=== PATIENT | male | born 1930 | race Caucasian/White ===

== ENCOUNTER 2021-08-28 14:52 | Emergency (ER) | payer OTHER ==
[2021-08-28 15:48] LABS: Urine Blood Trace-intact (Negative); Urine Glucose Negative (Negative); Urine Protein 2+ (Negative); Urine pH 7.5 (5.0-7.0)
[2021-08-28 16:31] LABS: Absolute Lymphocytes (CBC) 1.9 K/uL (0.7-4.9); Hematocrit 35.3 % (39.6-49.0); Lymphocytes % 27.6 % (15.3-44.8); MPV 7.8 fL (7.6-11.3); RBC Red Blood Cell Count 4.03 M/uL (4.33-5.43)
[2021-08-28 16:43] LABS: Albumin 3.5 g/dL (3.4-5.0); Bilirubin Total 0.7 mg/dL (0.2-1.0); Potassium 3.3 mmol/L (3.5-5.1); Protein, Total 7.2 g/dL (6.4-8.2)
[2021-08-28] MEDS ORDERED: CEFTRIAXONE 1000 MG/VIAL ONE (16:48)
--- NOTE | 2021-08-28 17:22 | ER ---
Nurse's Notes [facility] Name: Royer Landry Age: 89 yrs Sex: Male : 1930 Arrival Date: 08/28/2021 Time: 14:54 Bed 15 Private MD: Diagnosis: UTI/ Urinary tract infection, site not specified Presentation: 08/28 15:17 Chief complaint: Patient states: for the past 3-4 days pt back has been hurting and vg1 state has been going to urinate every hour, also states incontinence at times; denies burning with urination or blood. Coronavirus screen: Vaccine status: Patient reports receiving the 2nd dose of the covid vaccine. Client denies travel out of the [place] in the last 14 days. Ebola Screen: Patient denies exposure to infectious person. Patient denies travel to an Ebola-affected area in the 21 days before illness onset. Initial Sepsis Screen: Does the patient meet any 2 criteria? No. Patient's initial sepsis screen is negative. Does the patient have a suspected source of infection? No. Patient's initial sepsis screen is negative. Risk Assessment: Do you want to hurt yourself or someone else? Patient reports no desire to harm self or others. Onset of symptoms was August 24, 2021. 15:17 Method Of Arrival: Ambulatory vg1 15:17 Acuity: VANI 3 vg1 Triage Assessment: 15:20 General: Appears uncomfortable, Behavior is calm, cooperative. Pain: Complains of pain vg1 in back Pain currently is 5 out of 10 on a pain scale. Musculoskeletal: Circulation, motion, and sensation intact. Historical: - Allergies: 15:20 No Known Allergies; vg1 - Home Meds: 15:20 rosuvastatin oral [Active]; tamsulosin oral [Active]; Metformin Oral [Active]; vg1 - PMHx: 15:20 Diabetes mellitus; Hypertensive disorder; vg1 - Immunization history:: Client reports receiving the 2nd dose of the Covid vaccine. - Social history:: Smoking status: Patient denies any tobacco usage or history of. Screenin:37 Abuse screen: Denies threats or abuse. Denies injuries from another. Nutritional ld1 screening: No deficits noted. Tuberculosis screening: No symptoms or risk factors identified. Fall Risk None identified. Assessment: 16:37 General: Appears in no apparent distress. comfortable, Behavior is calm, cooperative, ld1 appropriate for age. Pain: Complains of pain in low back area Pain does not radiate. Pain currently is 7 out of 10 on a pain scale. Quality of pain is described as sharp, throbbing. Neuro: Level of Consciousness is awake, alert, obeys commands, Oriented to person, place, time, situation. Cardiovascular: Capillary refill < 3 seconds Patient's skin is warm and dry. Respiratory: Airway is patent Respiratory effort is even, unlabored. GI: Abdomen is round non-distended. : Reports incontinence, urgency. EENT: No signs and/or symptoms were reported regarding the EENT system. Derm: No signs and/or symptoms reported regarding the dermatologic system. Musculoskeletal: No signs and/or symptoms reported regarding the musculoskeletal system. 17:40 Reassessment: Patient appears in no apparent distress at this time. Patient and/or ld1 family updated on plan of care and expected duration. Pain level reassessed. Patient is alert, oriented x 3, equal unlabored respirations, skin warm/dry/pink. Vital Signs: 15:17 BP 109 / 54; Pulse 60; Resp 16; Temp 99.0(TE); Pulse Ox 97% on R/A; Weight 77.11 kg; vg1 Height 5 ft. 8 in. (172.72 cm); Pain 5/10; 16:37 BP 139 / 64; Pulse 52; Resp 18; Pulse Ox 98% on R/A; ld1 17:40 BP 138 / 72; Pulse 60; Resp 18; Pulse Ox 99% on R/A; ld1 15:17 Body Mass Index 25.85 (77.11 kg, 172.72 cm) 1 ED Course: 14:54 Patient arrived in ED. mr 15:04 Jarrett Ingram PA is PHCP. jmm 15:04 Jian Salguero MD is Attending Physician. [facility] 15:20 Triage completed. vg1 15:20 Arm band placed on. vg1 15:51 Urine Culture Sent. ss 16:21 Inserted saline lock: 22 gauge in right antecubital area, using aseptic technique. zm Blood collected. 16:21 Blood Culture Adult (2) Sent. zm 16:21 Procalcitonin Sent. zm 16:21 Lactate Sent. zm 16:21 CBC with Diff Sent. zm 16:21 CMP Sent. zm 16:21 Lipase Sent. zm 16:22 Urine Culture Sent. 16:36 Carlotta gArawal, RN is Primary Nurse. ld1 16:37 Patient has correct armband on for positive identification. Placed in gown. Bed in low ld1 position. Call light in reach. Side rails up X2. monitor car operator on. Pulse ox on. NIBP on. Door closed. Noise minimized. Warm blanket given. 16:37 No provider procedures requiring assistance completed. ld1 17:42 IV discontinued, intact, bleeding controlled, No redness/swelling at site. ld1 Administered Medications: 16:46 Drug: Rocephin (cefTRIAXone) 1 grams Route: IV; Rate: calculated rate; Site: right ld1 antecubital; Outcome: 17:22 Discharge ordered by . stephanie 17:41 Discharged to home ambulatory, with family. ld1 17:41 Condition: stable 17:41 Discharge instructions given to patient, family, Instructed on discharge instructions, follow up and referral plans. medication usage, Demonstrated understanding of instructions, follow-up care, medications, Prescriptions given X 1. 17:42 Patient left the ED. ld1 Signatures: Jarrett Ingram PA PA jmm Rivera, Mary mr Bette Pritchett, RN Idalia Curry RN RN 1 Carlotta Agrawal, RN RN ld1 Lacey Blevins
--- NOTE | 2021-08-28 17:22 | EDPHYS ---
Physician Documentation [facility] Name: Royer Landry Age: 89 yrs Sex: Male : 1930 Arrival Date: 08/28/2021 Time: 14:54 Bed 15 Private MD: ED Physician Jian Salguero HPI: 08/28 16:31 This 89 yrs old Male presents to ER via Ambulatory with complaints of Urinary Problem, jmm Back Pain. 16:31 Onset: The symptoms/episode began/occurred gradually, 1 day(s) ago. Associated signs jmm and symptoms: Pertinent positives: dysuria. The patient has not experienced similar symptoms in the past. This is an 89 year old male with a history of dm, htn that presents to the ED with complaints of fatigue, increased urinary frequency, body aches. Symptoms began yesterday. Denies vomiting, abdominal pain. Patient complains of some lower back pain as well. . Historical: - Allergies: 15:20 No Known Allergies; vg1 - Home Meds: 15:20 rosuvastatin oral [Active]; tamsulosin oral [Active]; Metformin Oral [Active]; vg1 - PMHx: 15:20 Diabetes mellitus; Hypertensive disorder; vg1 - Immunization history:: Client reports receiving the 2nd dose of the Covid vaccine. - Social history:: Smoking status: Patient denies any tobacco usage or history of. ROS: 16:31 Cardiovascular: Negative for chest pain, palpitations, and edema, Respiratory: Negative jmm for shortness of breath, cough, wheezing, and pleuritic chest pain, Abdomen/GI: Negative for abdominal pain, nausea, vomiting, diarrhea, and constipation. 16:31 Constitutional: Positive for body aches, chills, fatigue. 16:31 Back: Positive for pain at rest. 16:31 : Positive for urinary symptoms. 16:31 All other systems are negative. Exam: 16:31 Constitutional: This is a well developed, well nourished patient who is awake, alert, jmm and in no acute distress. Head/Face: atraumatic. Eyes: EOMI, no conjunctival erythema appreciated ENT: Moist Mucus Membranes Neck: Trachea midline, Supple Chest/axilla: Normal chest wall appearance and motion. Cardiovascular: Regular rate and rhythm. No edema appreciated Respiratory: Normal respirations, no respiratory distress appreciated Abdomen/GI: Non distended, soft Back: Normal ROM Skin: General appearance color normal MS/ Extremity: Moves all extremities, no obvious deformities appreciated, no edema noted to the lower extremities Neuro: Awake and alert Psych: Behavior is normal, Mood is normal, Patient is cooperative and pleasant Vital Signs: 15:17 BP 109 / 54; Pulse 60; Resp 16; Temp 99.0(TE); Pulse Ox 97% on R/A; Weight 77.11 kg; vg1 Height 5 ft. 8 in. (172.72 cm); Pain 5/10; 16:37 BP 139 / 64; Pulse 52; Resp 18; Pulse Ox 98% on R/A; ld1 17:40 BP 138 / 72; Pulse 60; Resp 18; Pulse Ox 99% on R/A; ld1 15:17 Body Mass Index 25.85 (77.11 kg, 172.72 cm) vg1 MDM: 15:44 Patient medically screened. [facility] 17:20 Data reviewed: vital signs, nurses notes. Counseling: I had a detailed discussion with stephanie the patient and/or guardian regarding: the historical points, exam findings, and any diagnostic results supporting the discharge/admit diagnosis, lab results, radiology results, the need for outpatient follow up, to return to the emergency department if symptoms worsen or persist or if there are any questions or concerns that arise at home. ED course: Patient is alert and non toxic in appearance in the ED. Patient does not appear septic. Given iv abx. Will follow up with pcp on . Given strict return precautions. Patient understood and agrees with the plan of care. . 08/28 15:22 Order name: Urine Culture [facility] 08/28 15:44 Order name: CBC with Diff; Complete Time: 16:33 [facility] 08/28 15:44 Order name: CMP; Complete Time: 16:45 [facility] 08/28 15:44 Order name: Lipase; Complete Time: 16:45 [facility] 08/28 15:44 Order name: Lactate; Complete Time: 16:45 [facility] 08/28 15:44 Order name: Procalcitonin; Complete Time: 16:57 [facility] 08/28 15:22 Order name: Urine Dipstick-Ancillary (obtain specimen); Complete Time: 15:51 [facility] 08/28 15:44 Order name: IV Saline Lock; Complete Time: 16:21 [facility] 08/28 15:44 Order name: Labs collected and sent; Complete Time: 16:21 [facility] 08/28 15:44 Order name: Blood Culture Adult (2) [facility] 08/28 15:49 Order name: Urine Dipstick-Ancillary; Complete Time: 16:11 EDMS Administered Medications: 16:46 Drug: Rocephin (cefTRIAXone) 1 grams Route: IV; Rate: calculated rate; Site: right ld1 antecubital; Disposition: 18:50 Co-signature as Attending Physician, Jian Salguero MD. rn Disposition Summary: 08/28/21 17:22 Discharge Ordered Location: Home [facility] Condition: Stable [facility] Diagnosis - UTI/ Urinary tract infection, site not specified [facility] Followup: [facility] - With: Private Physician - When: 2 - 3 days - Reason: Recheck today's complaints, Continuance of care, Re-evaluation by your physician Discharge Instructions: - Discharge Summary Sheet [facility] - Urinary Tract Infection, Adult [facility] Forms: - Medication Reconciliation Form [facility] - Thank You Letter [facility] - Antibiotic Education [facility] - Prescription Opioid Use [facility] Prescriptions: - cefpodoxime 200 mg Oral Tablet - take 1 tablet by ORAL route every 12 hours for 10 days with food; 20 tablet; [facility] Refills: 0, Product Selection Permitted Signatures: Dispatcher [employer] EDMS Jarrett Ingram PA PA jmm Nieto, Roman, MD MD rn Garcia, Victoria RN RN vg1 Carlotta Agrawal RN RN ld1
[2021-08-28 18:10] VITALS: TEMP 99
[2021-08-28 18:19] VITALS: BP 138/72; O2SAT 99
== END 2021-08-28 17:42 | disposition home or self-care (01) ==
LOC: ER 14:52
DX: N39.0 Urinary tract infection, site not specified (principal); E11.9 Type 2 diabetes mellitus without complications; I10 Essential (primary) hypertension
CPT/HCPCS: 36415; 80053; 81003; 83605; 83690; 84145; 85025; 87040; 87086; 87088; 96374; 99284

== ENCOUNTER 2021-08-29 20:39 | Inpatient (IN) | payer OTHER ==
--- NOTE | 2021-08-29 21:58 | RAD REPORT ---
EXAM DESCRIPTION: RAD - Chest Single View - 08/29/2021 9:17 pm CLINICAL HISTORY: COUGH COMPARISON: None available TECHNIQUE: AP portable chest image was obtained 08/29/2021 9:17 pm . FINDINGS: Lungs are clear. Lung base markings are accentuated by shallow inspiration. No definitive infiltrates seen. Heart and vasculature are normal. No measurable pleural effusion and no pneumothora x. No acute bony abnormality seen. No acute aortic findings suspected. IMPRESSION: No acute cardiopulmonary process.
--- NOTE | 2021-08-29 22:05 | RAD REPORT ---
EXAM DESCRIPTION: CT - Head C Spine Cap Wo Con - 08/29/2021 9:29 pm CLINICAL HISTORY: fall, head, neck, chest and abdomen pain COMPARISON: No comparisonsNo comparisons TECHNIQUE: Axial [address] head images were obtained. Axial [address] cervical spine images were obtain ed with sagittal and coronal reconstruction images reviewed. Axial 5 mm images of the chest, abdomen and pelvis were obtained. All CT scans are performed using dose optimization technique as appropriate and may include automated exposure control or mA/KV adjustment according to patient size. FINDINGS: No intracranial hemorrhage, mass or edema. No midline shift or abnormal fluid collection. Prominent atrophy and chronic ischemic changes are present. Ventricles appear slightly out of proport ion to the amount of volume loss. Correlation is needed with any findings of normal pressure hydrocep halus. Mastoid air cells are clear. Facial bones, orbits and sinuses are separately detailed. No skul l fracture. Arterial tree calcifications are present. 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 Cervical bodies are normal in height and alignment. No fracture or acute bone finding.Disc space narr owing is present from C3-C7. Endplate spurring changes are present with multilevel bony foraminal enc roachment.No prevertebral soft tissue thickening or paraspinal mass.Central canal detail is inherentl y limited on CT imaging. No pneumothorax or pulmonary contusion. Trace amount pleural fluid present in each post chest. No car diomegaly or pericardial effusion. No mediastinal hematoma and the aorta and pulmonary arteries are unremarkable. No chest will mass or abnormal axillary finding. No displaced rib fracture or other si gnificant bony finding. CT abdomen and pelvis show no injury to solid abdominal viscera. Gallbladder and biliary tree are unr emarkable. No bowel injury or significant finding. No free air, free fluid or abnormal stranding. No hernia, mass or bulky lymphadenopathy. No urinary bladder abnormality. No significant bony finding. Paget's or fibrous dysplasia changes to the left hemipelvis noted as an incidental finding. IMPRESSION: No hemorrhage, edema or acute intracranial finding. Atrophy and chronic ischemic changes are present with ventricles out of proportion to volume loss. Correlation can be made with any findi ngs of normal pressure hydrocephalus. 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 Cervical spine degenerative change with no acute finding. No pneumothorax, pulmonary contusion or acute CT chest finding. No acute CT abdomen or pelvis finding.
--- NOTE | 2021-08-29 22:07 | RAD REPORT ---
EXAM DESCRIPTION: CT - Facial Bones W/ Mpr - 08/29/2021 9:29 pm CLINICAL HISTORY: Fall with facial trauma COMPARISON: None. TECHNIQUE: Axial 2 millimeter thick images of the facial bones were obtained with sagittal and coron al reconstruction imaging. All CT scans are performed using dose optimization technique as appropriate and may include automated exposure control or mA/KV adjustment according to patient size. FINDINGS: Small scalp hematoma overlies the right frontal bone and there is periorbital contusion or edema. No globe or orbital content acute injury. No foreign body in the soft tissues. No fracture of the mandible identified. Condyles are normally positioned. Mastoid air cells are clear . There is no skullbase fracture. No facial bone fractures identified. Very minimal right deviation t he nasal septum present without fracture. IMPRESSION: Right-sided frontal bone and periorbital soft tissue injury with no foreign body. No facial bone fractures identified.
[2021-08-29 23:12] LABS: Absolute Lymphocytes (CBC) 1.3 K/uL (0.7-4.9); Hematocrit 38.3 % (39.6-49.0); Lymphocytes % 13.2 % (15.3-44.8); MPV 7.9 fL (7.6-11.3); RBC Red Blood Cell Count 4.42 M/uL (4.33-5.43)
[2021-08-29] MEDS ORDERED: NA CHLORIDE 0.9% 2,000 ML ONE (23:15)
[2021-08-29] MEDS ORDERED: FAMOTIDINE 20 MG/2 ML VIAL IV ONE (23:15)
[2021-08-29 23:17] LABS: Protime INR 1.04
--- NOTE | 2021-08-29 23:24 | ER ---
Nurse's Notes [facility] Name: Royer Landry Age: 89 yrs Sex: Male : 1930 Arrival Date: 08/29/2021 Time: 20:48 Bed 5 Private MD: Diagnosis: Weakness;Chronic atrial fibrillation;Fall on same level, unspecified;Syncope Near;UTI/ Urinary tract infection, site not specified;Rhabdomyolysis;Unspecified kidney failure-acute on chronic;Hypomagnesemia;Coronavirus infection, unspecified Presentation: 08/28 21:00 Chief complaint: EMS states: "Pt son stated he sat his dad down for breakfast about vc1 7:30 and came back about 12 hours later and found him face down on the floor meal not eaten. Pt states he remembers falling and there was no LOC.". Coronavirus screen:. Risk Assessment: Do you want to hurt yourself or someone else? Patient reports no desire to harm self or others. 08/29 21:00 Method Of Arrival: EMS: [facility] vc1 21:00 Acuity: VANI 2 vc1 21:00 Ebola Screen: No symptoms or risks identified at this time. Initial Sepsis Screen: Does vc1 the patient meet any 2 criteria? RR > 20 per min. No. Patient's initial sepsis screen is negative. Does the patient have a suspected source of infection? No. Patient's initial sepsis screen is negative. Onset of symptoms was August 29, 2021. Historical: - Allergies: 22:23 No Known Allergies; vc1 - Home Meds: 22:23 Metformin Oral [Active]; rosuvastatin Oral [Active]; tamsulosin Oral [Active]; vc1 - PMHx: 22:23 diabetes mellitus; Hypertensive disorder; vc1 - Immunization history:: Adult Immunizations up to date. - Social history:: Smoking status: Patient denies any tobacco usage or history of. - Family history:: not pertinent. Screenin/04 02:27 Abuse screen: Denies threats or abuse. Nutritional screening: No deficits noted. ll3 Tuberculosis screening: No symptoms or risk factors identified. Fall Risk Fall in past 12 months (25 points). No secondary diagnosis (0 pts). IV access (20 points). Ambulatory Aid- None/Bed Rest/Nurse Assist (0 pts). Gait- Normal/Bed Rest/Wheelchair (0 pts) Mental Status- Oriented to own ability (0 pts). Total Abernathy Fall Scale indicates Low Risk Score (25-44 pts). Fall prevention measures have been instituted. Side Rails Up X 2 Placed close to Nursing Station Family Present and informed to notify staff if they need to leave bedside As available Patient and Family Educated on Fall Prevention Program and strategies. Assessment: 08/29 23:32 General: Appears comfortable, Behavior is calm, cooperative. Pain: Complains of pain in ll3 right eye. Neuro: Level of Consciousness is awake, alert, obeys commands, Oriented to person, place, time, situation. Respiratory: Respiratory effort is even, unlabored, Respiratory pattern is regular, symmetrical. Derm: Bruising that is dark purple, on right eye Reports States pt fell this morning, swelling and bruising to right eye. Musculoskeletal: Circulation, motion, and sensation intact. 08/30 02:31 Reassessment: No changes from previously documented assessment. Patient and/or family ll3 updated on plan of care and expected duration. Pain level reassessed. Patient is alert, oriented x 3, equal unlabored respirations, skin warm/dry/pink. 03:30 Reassessment: 2nd attempt to call report, will call back in 10 minutes. vc1 Vital Signs: 08/29 22:40 BP 143 / 66; Pulse 78; Resp 19; Pulse Ox 99% on R/A; ll3 08/30 00:30 BP 142 / 67; Pulse 74; Resp 22; Pulse Ox 98% on R/A; ll3 02:00 BP 121 / 63; Pulse 77; Resp 21; Pulse Ox 99% on R/A; ll3 ED Course: 08/29 20:48 Patient arrived in ED. mw2 20:53 Estrada Wiggins MD is Attending Physician. bran 21:19 XRAY Chest (1 view) In Process Unspecified. EDMS 21:31 CT Traumagram (Head C Spine CAP wo con) In Process Unspecified. EDMS 21:31 Facial Bones W/ Mpr In Process Unspecified. EDMS 22:23 Triage completed. vc1 23:19 Yue De Los Santos MD is Hospitalizing Provider. bran 08/30 02:27 Patient has correct armband on for positive identification. Bed in low position. Call ll3 light in reach. Side rails up X 1. 02:27 Inserted saline lock: 22 gauge in right antecubital area, using aseptic technique. ll3 Blood collected. 03:30 No provider procedures requiring assistance completed. Patient admitted, IV remains in vc1 place. Administered Medications: 08/29 23:20 Drug: Pepcid (famotidine) 20 mg Route: IVP; Site: right antecubital; ll3 08/30 00:35 Follow up: Response: No adverse reaction 3 08/29 23:21 Drug: NS 0.9% 1000 ml Route: IV; Rate: 1 bolus; Site: right antecubital; ll3 08/30 02:32 Follow up: Response: No adverse reaction; IV Status: Completed infusion; IV Intake: ll3 1000ml 08/29 23:32 Drug: Rocephin (cefTRIAXone) 1 grams Route: IV; Rate: per protocol; Site: right ll3 antecubital; 08/30 00:34 Follow up: Response: No adverse reaction; IV Status: Completed infusion; IV Intake: [id number] 00:34 Drug: Magnesium Sulfate 1 grams Route: IVPB; Infused Over: 1 hrs; Site: right ll3 antecubital; 02:31 Follow up: Response: No adverse reaction; IV Status: Completed infusion; IV Intake: ll3 100ml 00:34 Drug: Viscous Lidocaine Liquid (4 %) 5 ml Route: Mucous Membrane; ll3 02:31 Follow up: Response: No adverse reaction ll3 01:42 Drug: NS 0.9% 1000 ml Route: IV; Rate: 125 ml/hr; Site: right antecubital; ll3 Intake: 00:34 IV: 10ml; Total: 10ml. ll3 02:31 IV: 100ml; Total: 110ml. ll3 02:32 IV: 1000ml; Total: 1110ml. ll3 Outcome: 08/29 23:24 Decision to Hospitalize by Provider. [facility] 08/30 03:57 Admitted to Med/surg accompanied by tech, via stretcher, room 223, Report called to 1 Anushka Lira RN Condition: good Instructed on the need for admit. 04:20 Patient left the ED. [facility] Signatures: Dispatcher [employer] EDEstrada Figueroa MD MD cha [place]brook, MyKena 2 Loubet, Lynsea, RN RN ll3 Calcote, Lina, RN RN vc1
--- NOTE | 2021-08-29 23:24 | EDPHYS ---
Physician Documentation [facility] Name: Royer Landry Age: 89 yrs Sex: Male : 1930 Arrival Date: 08/29/2021 Time: 20:48 Bed 5 Private MD: ED Physician Estrada Wiggins HPI: 08/29 21:08 This 89 yrs old Male presents to ER via Unassigned with complaints of fall on bran floor x 24 hrs. 21:08 weak, at baseline. Onset: The symptoms/episode began/occurred yesterday. Severity of bran symptoms: At their worst the symptoms were mild in the emergency department the symptoms are unchanged. The patient has not experienced similar symptoms in the past. Historical: - Allergies: 22:23 No Known Allergies; vc1 - Home Meds: 22:23 Metformin Oral [Active]; rosuvastatin Oral [Active]; tamsulosin Oral [Active]; vc1 - PMHx: 22:23 diabetes mellitus; Hypertensive disorder; vc1 - Immunization history:: Adult Immunizations up to date. - Social history:: Smoking status: Patient denies any tobacco usage or history of. - Family history:: not pertinent. ROS: 21:10 Constitutional: Negative for fever, chills, and weight loss, Eyes: Negative for injury, bran pain, redness, and discharge, ENT: Negative for injury, pain, and discharge, Neck: Negative for injury, pain, and swelling, Cardiovascular: Negative for chest pain, palpitations, and edema, Respiratory: Negative for shortness of breath, cough, wheezing, and pleuritic chest pain, Abdomen/GI: Negative for abdominal pain, nausea, vomiting, diarrhea, and constipation, Back: Negative for injury and pain, : Negative for injury, bleeding, discharge, and swelling, Skin: Negative for injury, rash, and discoloration, Psych: Negative for depression, anxiety, suicide ideation, homicidal ideation, and hallucinations, Allergy/Immunology: Negative for hives, rash, and allergies, Endocrine: Negative for neck swelling, polydipsia, polyuria, polyphagia, and marked weight changes. 21:10 MS/extremity: Positive for abrasion, contusion. 21:10 Neuro: Positive for altered mental status, near syncope, weakness. Exam: 21:10 Constitutional: This is a well developed, well nourished patient who is awake, alert, bran and in no acute distress. Head/Face: Normocephalic, atraumatic. Eyes: Pupils equal round and reactive to light, extra-ocular motions intact. Lids and lashes normal. Conjunctiva and sclera are non-icteric and not injected. Cornea within normal limits. Periorbital areas with no swelling, redness, or edema. ENT: Nares patent. No nasal discharge, no septal abnormalities noted. Tympanic membranes are normal and external auditory canals are clear. Oropharynx with no redness, swelling, or masses, exudates, or evidence of obstruction, uvula midline. Mucous membranes moist. Neck: Trachea midline, no thyromegaly or masses palpated, and no cervical lymphadenopathy. Supple, full range of motion without nuchal rigidity, or vertebral point tenderness. No Meningismus. Chest/axilla: Normal chest wall appearance and motion. Nontender with no deformity. No lesions are appreciated. Cardiovascular: Regular rate and rhythm with a normal S1 and S2. No gallops, murmurs, or rubs. Normal PMI, no JVD. No pulse deficits. Respiratory: Lungs have equal breath sounds bilaterally, clear to auscultation and percussion. No rales, rhonchi or wheezes noted. No increased work of breathing, no retractions or nasal flaring. Abdomen/GI: Soft, non-tender, with normal bowel sounds. No distension or tympany. No guarding or rebound. No evidence of tenderness throughout. Back: No spinal tenderness. No costovertebral tenderness. Full range of motion. Male : Normal genitalia with no discharge or lesions. Psych: Awake, alert, with orientation to person, place and time. Behavior, mood, and affect are within normal limits. 21:10 Musculoskeletal/extremity: ROM: no acute changes, intact in all extremities, Circulation is intact in all extremities. Sensation intact. Compartment Syndrome exam of affected extremity: is normal. DVT Exam: no swelling, negative Homans' sign noted on exam, no appreciated bluish discoloration, no erythema, no increased warmth, pain, tenderness. 21:10 Skin: injury, contusion(s), that are deep, of the right eye. 22:45 ECG was reviewed by the Attending Physician. [facility] Vital Signs: 22:40 BP 143 / 66; Pulse 78; Resp 19; Pulse Ox 99% on R/A; ll3 08/30 00:30 BP 142 / 67; Pulse 74; Resp 22; Pulse Ox 98% on R/A; ll3 02:00 BP 121 / 63; Pulse 77; Resp 21; Pulse Ox 99% on R/A; ll3 MDM: 08/29 20:53 Patient medically screened. bran 21:10 Differential diagnosis: closed head injury, C spine fracture, T spine fracture, L spine bran fracture. Differential Diagnosis altered mental status. Differential Diagnosis: cardiac arrhythmia, cerebrovascular accident, transient ischemic attack, vasovagal episode. Data reviewed: vital signs, nurses notes, lab test result(s), EKG, radiologic studies, CT scan, plain films. Data interpreted: phototypesetting equipment monitor: rate is 85 beats/min. Test interpretation: by ED physician or midlevel provider: ECG, plain radiologic studies. Counseling: I had a detailed discussion with the patient and/or guardian regarding: the historical points, exam findings, and any diagnostic results supporting the discharge/admit diagnosis, lab results, radiology results, the need for further work-up and treatment in the hospital. 08/29 21:07 Order name: Basic Metabolic Panel; Complete Time: 23:50 [facility] 08/29 21:07 Order name: CBC with Diff; Complete Time: 23:17 [facility] 08/29 21:07 Order name: LFT's; Complete Time: 23:50 [facility] 08/29 21:07 Order name: Magnesium; Complete Time: 23:50 [facility] 08/29 21:07 Order name: NT PRO-BNP; Complete Time: 23:50 [facility] 08/29 21:07 Order name: PT-INR; Complete Time: 23:50 [facility] 08/29 21:07 Order name: Troponin HS; Complete Time: 23:50 [facility] 08/29 21:07 Order name: Lipase; Complete Time: 23:50 [facility] 08/29 21:07 Order name: Urine Culture [facility] 08/29 21:07 Order name: Ckmb; Complete Time: 23:50 [facility] 08/29 21:07 Order name: CK; Complete Time: 23:50 [facility] 08/30 00:41 Order name: COVID-19/FLU A+B (Document "Date of Onset" if Symptomatic) ll3 08/30 00:44 Order name: Urine Dipstick-Ancillary; Complete Time: 00:47 EDMS 08/29 21:07 Order name: XRAY Chest (1 view); Complete Time: 22:13 [facility] 08/29 21:07 Order name: EKG; Complete Time: 21:08 [facility] 08/29 21: Order name: Cardiac monitoring; Complete Time: 23:44 [facility] 08/29 21:07 Order name: EKG - Nurse/Tech; Complete Time: 23:44 [facility] 08/29 21:07 Order name: IV Saline Lock; Complete Time: 23:44 [facility] 08/29 21:07 Order name: Labs collected and sent; Complete Time: 23:44 [facility] 08/29 21:07 Order name: O2 Per Protocol; Complete Time: 23:44 [facility] 08/29 21:07 Order name: O2 Sat Monitoring; Complete Time: 23:44 [facility] 08/29 21: Order name: CT Traumagram (Head C Spine CAP wo con); Complete Time: 22:13 [facility] 08/29 21:24 Order name: Facial Bones W/ Mpr; Complete Time: 22:13 EDMO 08/29 21:07 Order name: Urine Dipstick-Ancillary (obtain specimen); Complete Time: 00:41 [facility] EC:45 Rate is 78 beats/min. Rhythm is irregularly irregular. QRS [place] is Normal. RI interval bran is normal. QRS interval is normal. QT interval is prolonged at 418 msec. No Q waves. T waves are Normal. No ST changes noted. Clinical impression: Atrial Fibrillation and No evidence of ischemia. Interpreted by me. Reviewed by me. Administered Medications: 23:20 Drug: Pepcid (famotidine) 20 mg Route: IVP; Site: right antecubital; [facility] 08/30 00:35 Follow up: Response: No adverse reaction [facility] 08/29 23:21 Drug: NS 0.9% 1000 ml Route: IV; Rate: 1 bolus; Site: right antecubital; [facility] 08/30 02:32 Follow up: Response: No adverse reaction; IV Status: Completed infusion; IV Intake: ll3 1000ml 08/29 23:32 Drug: Rocephin (cefTRIAXone) 1 grams Route: IV; Rate: per protocol; Site: right [facility] antecubital; 08/30 00:34 Follow up: Response: No adverse reaction; IV Status: Completed infusion; IV Intake: [id number] 00:34 Drug: Magnesium Sulfate 1 grams Route: IVPB; Infused Over: 1 hrs; Site: right ll3 antecubital; 02:31 Follow up: Response: No adverse reaction; IV Status: Completed infusion; IV Intake: ll3 100ml 00:34 Drug: Viscous Lidocaine Liquid (4 %) 5 ml Route: Mucous Membrane; ll3 02:31 Follow up: Response: No adverse reaction ll3 01:42 Drug: NS 0.9% 1000 ml Route: IV; Rate: 125 ml/hr; Site: right antecubital; ll3 Disposition Summary: 08/29/21 23:24 Hospitalization Ordered Hospitalization Status: Inpatient Admission bran Provider: Yue De Los Santos cha Location: Telemetry/MedSurg (Inpatient) bran Condition: Fair bran Problem: new bran Symptoms: have improved bran Bed/Room Type: Standard bran Room Assignment: 223(08/30/21 03:00) cg Diagnosis - Weakness bran - Chronic atrial fibrillation bran - Fall on same level, unspecified bran - Syncope Near bran - UTI/ Urinary tract infection, site not specified bran - Rhabdomyolysis bran - Unspecified kidney failure - acute on chronic bran - Hypomagnesemia bran - Coronavirus infection, unspecified bran Forms: - Medication Reconciliation Form bran - SBAR form bran Signatures: Dispatcher [employer] Estrada Hurst MD MD cha Garcia, Cindy, RN RN Zackary Jackson RN RN ll3 Lina Jeffries RN RN vc1 Dana Mas PA PA sb3 Corrections: (The following items were deleted from the chart) 01:09 00:41 COVID 19 CPL+MR.LAB.BRZ ordered. [facility] EDMO 03:00 08/29 23:24 bran cg
[2021-08-29] MEDS ORDERED: CEFTRIAXONE 1000 MG/VIAL ONE (23:28)
[2021-08-29 23:42] LABS: Albumin 2.8 g/dL (3.4-5.0); Bilirubin Direct 0.2 mg/dL (0-0.2); Bilirubin Total 0.6 mg/dL (0.2-1.0); Magnesium 1.6 mg/dL (1.8-2.4); Potassium 3.5 mmol/L (3.5-5.1); Protein, Total 6.5 g/dL (6.4-8.2)
[2021-08-29 23:47] LABS: CKMB Creatine Kinase MB 55.1 ng/mL (1.0-3.6)
[2021-08-29 23:48] LABS: Troponin High Sensitivity 68.5 pg/mL (<58.9)
[2021-08-30] MEDS ORDERED: LIDOCAINE VISCOUS 2% SOLN 15 ML UDC ONE (00:31)
[2021-08-30] MEDS ORDERED: MAGNESIUM SULFATE 1 gm IVPB 1 GM/100 ML BAG IV ONE (00:31)
[2021-08-30 00:43] LABS: Urine Blood 2+ (Negative); Urine Glucose Negative (Negative); Urine Protein 2+ (Negative)
--- NOTE | 2021-08-30 01:11 | P.HP ---
Certification for Inpatient Patient admitted to: Inpatient With expected LOS: <2 Midnights Patient will require the following post-hospital care: None Practitioner: I am a practitioner with admitting privileges, knowledge of patient current condition, hospital course, and medical plan of care. Services: Services provided to patient in accordance with Admission requirements found in Title 42 Section 412.3 of the Code of Federal Regulations Patient History Date of Service: 08/30/21 Primary Care Provider: Izaiah Reason for admission: Rhabdomyolysis, GARO History of Present Illness: Patient is an 89-year-old male with past medical history of type 2 diabetes [id number], hypertension, and BPH who presented to the ED via EMS. Per patient's son, he sat his dad down for breakfast around 730 and when he came home over 12 hours later he found him face down on the floor with his food untouched. Patient does not recall what happened. CT traumagram negative. Patient has right periorbital swelling and bruising but CT facial bones negative for fracture. Labs significant for creatinine 1.41, GFR 47, glucose 127, magnesium 1.6, creatinine kinase 3174, CK-MB 55, troponin at bedtime 68, BNP 1933, albumin 2.8, urine positive for UTI. Patient was seen in the ED yesterday and treated for a UTI with 1 g Rocephin and discharged with a prescription for cefpodoxime. Today in the ED, he was given 2 L normal saline, 1 g Rocephin, magnesium. Son is at bedside upon my assessment and states that patient has already improved significantly. Reports he is much more talkative and less confused than he was initially. Patient is not sure what happened today but he is oriented x3 and is answering my questions appropriately. He denies any pain. Will admit patient for further evaluation and treatment. Home medications list reviewed: Yes - Past Medical/Surgical History Diabetic: Yes -: Type 2 Diabetes, Non-Insulin Dependent -: HTN -: BPH Past Surgical History: Patient denies surgical history Psychosocial/ Personal History: Patient lives at home independently. - Family History Brother -: Blood disorders Mother -: Cancer - Social History Smoking Status: Former smoker Alcohol use: No CD- Drugs: No Caffeine use: Yes Place of Residence: Home Review of Systems Unremarkable Physical Examination - Physical Exam General: Alert, In no apparent distress, Oriented x3 HEENT: PERRLA, Other (R periorbital bruising and swelling), EOMI Neck: Supple, 2+ carotid pulse no bruit, No LAD, Without JVD or thyroid abnormality Respiratory: Clear to auscultation bilaterally, Normal air movement Cardiovascular: No edema, Regular rate/rhythm, Normal S1 S2 Gastrointestinal: Normal bowel sounds, No tenderness Musculoskeletal: No erythema, No tenderness, No warmth Integumentary: No rashes Neurological: Normal speech, Normal strength at 5/5 x4 extr, Normal tone, Normal affect Urinary: Fink catheter - Studies Laboratory Data (last 24 hrs) 08/29/21 23:01: PT 11.5, INR 1.04 08/29/21 23:01: WBC 10.2 D, Hgb 13.3 L, Hct 38.3 L, Plt Count 160 08/29/21 23:01: Sodium 139, Potassium 3.5, BUN 30 H, Creatinine 1.41 H, Glucose 127 H, Magnesium 1.6 L, Total Bilirubin 0.6, AST 113 H, ALT 50, Alkaline Phosphatase 71, Lipase 130 Assessment and Plan - Problems (Diagnosis) (1) Rhabdomyolysis Current Visit: Yes Status: Acute Qualifiers: Rhabdomyolysis type: non-traumatic Qualified Code(s): M62.82 - Rhabdomyolysis (2) Fall Current Visit: Yes Status: Acute Qualifiers: Encounter type: initial encounter Qualified Code(s): W19.XXXA - Unspecified fall, initial encounter (3) GARO (acute kidney injury) Current Visit: Yes Status: Acute (4) Type 2 diabetes mellitus Current Visit: No Status: Chronic Qualifiers: Diabetes mellitus snf insulin use: without local intermodal truck driver use Diabetes mellitus complication status: with kidney complications Diabetes mellitus complication detail: with chronic kidney disease 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) (5) New onset a-fib Current Visit: Yes Status: Acute (6) HTN (hypertension) Current Visit: No Status: Chronic Qualifiers: Hypertension type: primary hypertension Qualified Code(s): I10 - Essential (primary) hypertension (7) BPH (benign prostatic hyperplasia) Current Visit: Yes Status: Chronic Qualifiers: Lower urinary tract symptom presence: symptoms present Lower urinary tract symptom detail: unspecified Qualified Code(s): N40.1 - Benign prostatic hyperplasia with lower urinary tract symptoms (8) UTI (urinary tract infection) Current Visit: Yes Status: Acute Qualifiers: Urinary tract infection type: acute cystitis Hematuria presence: with hematuria Qualified Code(s): N30.01 - Acute cystitis with hematuria (9) Hypomagnesemia Current Visit: Yes Status: Acute (10) HLD (hyperlipidemia) Current Visit: No Status: Chronic Qualifiers: Hyperlipidemia type: unspecified Qualified Code(s): E78.5 - Hyperlipidemia, unspecified - Plan -Rhabdomyolysis likely secondary to patient's prolonged immobilization after fall today -Creatinine kinase, CK-MB, and troponin HS all elevated. Will trend -Patient given 2 L fluid in the ED. continue NS at 125 cc/hour. Fink catheter inserted in the ED. -GARO with creatinine of 1.41. Will trend. Hold nephrotoxic drugs. Renal diet -UTI. Given 1 g Rocephin yesterday in the ED and another gram today. continue. Pend urine culture -EKG showed A. fib. Patient's son states that he does not think he has a history of it nor does he take a blood thinner. Cardiology consulted -Monitor electrolytes and replete as necessary -Patient takes metformin. Will NOT continue. ACHS accu checks with mild sliding scale insulin. -TSH and uric acid pending -Heparin for VTE prophylaxis Discharge Plan: Home Plan to discharge in: 48 Hours - Advance Directives Does patient have a Living Will: No Does patient have a Durable POA for Healthcare: No - Code Status/Comfort Care Code Status Assessed: Yes (Full) Critical Care: No Time Spent Managing Pts Care (In Minutes): 70
[2021-08-30 02:52] LABS: SARS-COV-2 RT PCR POSITIVE (NEGATIVE)
[2021-08-30] MEDS ORDERED: ACETAMINOPHEN 500 MG TAB PO PRN (05:17)
[2021-08-30] MEDS ORDERED: ONDANSETRON 4 MG/2 ML VIAL IV PRN (05:17)
[2021-08-30] MEDS: NA CHLORIDE 0.9% 1,000 ML IV SCH ×2 (05:56→13:23)
[2021-08-30] MEDS: HEPARIN 5000 UNIT/ML 1 ML VIAL SQ SCH ×3 (05:56→16:59)
[2021-08-30 06:02] LABS: Absolute Lymphocytes (CBC) 1.7 K/uL (0.7-4.9); Hematocrit 35.9 % (39.6-49.0); Lymphocytes % 19.8 % (15.3-44.8); RBC Red Blood Cell Count 4.11 M/uL (4.33-5.43)
[2021-08-30 06:22] LABS: Albumin 2.7 g/dL (3.4-5.0); Bilirubin Total 0.5 mg/dL (0.2-1.0); Magnesium 1.8 mg/dL (1.8-2.4); Phosphorus 2.3 mg/dL (2.5-4.9); Potassium 3.2 mmol/L (3.5-5.1); Protein, Total 6.1 g/dL (6.4-8.2); Thyroid Stimulating Hormone 1.82 uIU/mL (0.360-3.740); Uric Acid 8.3 mg/dL (3.5-7.2)
[2021-08-30 06:23] LABS: CKMB Creatine Kinase MB 52.1 ng/mL (1.0-3.6)
[2021-08-30] MEDS: INSULIN -REGULAR HUMAN 50 UNIT/0.5 ML ML SQ SCH ×4 (07:30→21:00)
[2021-08-30] MEDS ORDERED: POTASSIUM CL SA 10 MEQ TAB PO ONE ×2 (09:00→15:44)
[2021-08-30] MEDS: CEFTRIAXONE 1,000 MG in NA CHLORIDE 0.9% 50 ML IVPB SCH (09:02)
[2021-08-30] MEDS: POTASS/SODIUM PHOSPHATE 1 PKT POWD.PACK PO SCH ×3 (11:16→13:18)
--- NOTE | 2021-08-30 12:35 | P.PN ---
Date of Service: 08/30/21 Patient seen and examined. He has no new complaint. No chest pain CK is trending down slowly. Initial troponin mildly elevated. COVID-19 positive Plan: Patient without COVID symptoms. The etiology of fall unknown. Could be a syncopal event. Seen by cardiology. Repeat troponin, obtain echocardiogram. Continue IV fluid for elevated CK. PT evaluation.
--- NOTE | 2021-08-30 12:53 | EKG ---
Test Date: 2021-08-29 Test Time: 22:36:31 Global Compensation Analyst: CARMELA MEASUREMENT RESULTS: Intervals: Rate: 78 IA: QRSD: 78 QT: 418 QTc: 476 [place]: P: IA: QRS: 34 T: 126 INTERPRETIVE STATEMENTS: Atrial fibrillation Nonspecific ST and T wave abnormality, probably digitalis effect Prolonged QT Abnormal ECG Compared to ECG 08/08/2020 12:29:36 Prolonged QT interval now present Sinus bradycardia no longer present First degree AV block no longer present ST (T wave) deviation still present Electronically Signed On 08-30-21 12:51:57 CDT by Dat Flood
[2021-08-31] MEDS: HEPARIN 5000 UNIT/ML 1 ML VIAL SQ SCH ×3 (00:44→18:00)
[2021-08-31] MEDS: NA CHLORIDE 0.9% 1,000 ML IV SCH ×2 (00:45→05:17)
[2021-08-31 04:05] VITALS: BMI 22.7
[2021-08-31 05:58] LABS: Absolute Lymphocytes (CBC) 1.8 K/uL (0.7-4.9); Hematocrit 33.6 % (39.6-49.0); MPV 7.7 fL (7.6-11.3); RBC Red Blood Cell Count 3.86 M/uL (4.33-5.43)
[2021-08-31 06:26] LABS: Albumin 2.7 g/dL (3.4-5.0); Bilirubin Total 0.6 mg/dL (0.2-1.0); Magnesium 1.6 mg/dL (1.8-2.4); Phosphorus 1.8 mg/dL (2.5-4.9); Potassium 3.9 mmol/L (3.5-5.1)
[2021-08-31] MEDS: INSULIN -REGULAR HUMAN 50 UNIT/0.5 ML ML SQ SCH ×4 (07:30→21:00)
--- NOTE | 2021-08-31 07:53 | EKG ---
Test Date: 2021-08-30 Test Time: 12:36:14 Welding Process Engineer: AYDEE MEASUREMENT RESULTS: Intervals: Rate: 60 WY: 230 QRSD: 82 QT: 456 QTc: 456 [place]: P: 86 W[place]: 230 QRS: -1 T: 48 INTERPRETIVE STATEMENTS: Sinus rhythm with 1st degree AV block Otherwise normal ECG Compared to ECG 08/29/2021 22:36:31 First degree AV block now present Atrial fibrillation no longer present ST (T wave) deviation no longer present Prolonged QT interval no longer present Electronically Signed On 08-31-21 07:52:50 CDT by Dat Flood
--- NOTE | 2021-08-31 08:10 | ECHO ---
HEIGHT: 5 ft 9 in WEIGHT: 154 lb 0 oz DATE OF STUDY: 08/30/[address]: jefferson bolton 2-DIMENSIONAL: YES M.MODE: YES DOPPLER: YES COLOR FLOW: YES TDS: PORTABLE: YES DEFINITY: BUBBLE STUDY: DIAGNOSIS: SYNCOPE CARDIAC HISTORY: CATHERIZATION: SURGERY: PROSTHETIC VALVE: PACEMAKER: MEASUREMENTS (cm) DIASTOLIC (NORMALS) SYSTOLIC (NORMALS) IVSd 1.0 (0.6-1.2) LA Diam 3.8 (1.9-4.0) LVEF 72% LVIDd 5.0 (3.5-5.7) LVIDs 2.9 (2.0-3.5) %FS 41% LVPWd 1.0 (0.6-1.2) Ao Diam 3.1 (2.0-3.7) 2 DIMENSIONAL ASSESSMENT: RIGHT ATRIUM: LEFT ATRIUM: RIGHT VENTRICLE: LEFT VENTRICLE: TRICUSPID VALVE: MITRAL VALVE: PULMONIC VALVE: AORTIC VALVE: PERICARDIAL EFFUSION: AORTIC ROOT: LEFT VENTRICULAR WALL MOTION: DOPPLER/COLOR FLOW: MILD AORTIC, MITRAL AND TRICUSPID REGURGITATION. COMMENTS: MILD AORTIC, MITRAL AND TRICUSPID REGURGITATION. NORMAL LEFT VENTRICULAR SIZE AND FUNCTION. NO WALL MOTION ABNORMALITY. NO EFFUSION. TECHNOLOGIST: SANDIP OGLESBY
--- NOTE | 2021-08-31 08:59 | CON ---
Date of Consultation: 08/30/2021 Reason For Consultation: Elevated troponin, rhabdomyolysis, and acute kidney injury. History Of Present Illness: Mr. Landry is an 89-year-old, who came into the hospital after a fall, was found on the floor, has been there for a few hours, was found to have elevated troponin and I was co nsulted. No syncope reported. No chest pain reported. The patient has a history of diabetes and hy pertension. He takes metformin, Crestor, and tamsulosin. There were no symptoms of nausea, vomiting , or diaphoresis or PND, orthopnea, or pedal edema, or palpitation. Past Medical History: As stated above. Allergies: NONE. Review of Systems: Negative. Social History: Negative. Family History: Negative. Medications: Listed earlier. Physical Examination: Vital Signs: Stable, afebrile, sinus rhythm. HEENT: Negative. Neck: Supple with no bruit. Chest: Clear to auscultation and percussion. Cardiac: Revealed a regular rhythm and rate without any murmurs, gallops, or rubs. Abdomen: Benign. Extremities: Revealed no clubbing, cyanosis, or edema. Diagnostic Data: Chest x-ray was negative. He was found to have a creatinine of 1.3, normal hemoglo bin and white count. His potassium was 3.2. His CPK was 3068 with an MB of 521. Troponin was 68.5. His BNP was 1933. He was positive for COVID. Impression And Plan: 1.Elevated CPK, MB, and troponin secondary to rhabdomyolysis. 2.Hypertension. 3.Diabetes. 4.COVID. 5.Hypokalemia. The patient needs to be on antibiotics, potassium supplementation, heparin subcu for deep vein thrombosis prophylaxis. We need to do a 2D echocardiogram on him to rule out cardiomyopat hy or aortic stenosis or wall motion abnormalities. Hydrate him. It is possible that the Flomax may have caused some orthostatic hypotension, which has caused some fall. We will follow him as needed. DANNY/BRANDAN Voice ID: [id number] Report ID: [id number]
[2021-08-31] MEDS: CEFTRIAXONE 1,000 MG in NA CHLORIDE 0.9% 50 ML IVPB SCH (10:05)
--- NOTE | 2021-08-31 13:20 | PN ---
Mr. Landry was admitted on 08/29/2021 with a fall, rhabdomyolysis, elevated troponin, elevated CPKs and MBs as well as hypokalemia. Echocardiogram was done which showed normal ejection fraction, no wall motion abnormalities and no effusion. EKG shows normal sinus rhythm with still first-degree AV block . He has not had any further arrhythmia. Blood pressure is adequate. He is being hydrated, treated for rhabdomyolysis. No cardiac issues going on. Consider stopping the Flomax when he goes home bec ause of possibility of orthostatic hypotension. Otherwise, continue present medical treatment. I wi ll sign off his case for now. DANNY/MODL Voice ID: [id number] Report ID: [id number]
--- NOTE | 2021-08-31 17:07 | P.PN ---
Subjective Date of Service: 08/31/21 Primary Care Provider: Izaiah Chief Complaint: Rhabdomyolysis, GARO Patient is a bit confused. He was in brief atrial fibrillation yesterday. He spontaneously converted to sinus rhythm. CK level is trending down. No cough or shortness of breath. He is tolerating room air. No fever. Physical Examination - Vital Signs Temperature: 97.5 F Blood Pressure: 169/84 Pulse: 78 Respirations: 16 Pulse Ox (%): 95 - Physical Exam General: In no apparent distress, Confused HEENT: Mucous membr. moist/pink Neck: Supple, JVD not distended Respiratory: Clear to auscultation bilaterally, Normal air movement Cardiovascular: No edema, Regular rate/rhythm, Normal S1 S2, No murmurs Gastrointestinal: Soft and benign, Non-distended, No tenderness Musculoskeletal: No swelling, No tenderness Integumentary: Other (Bruise right forehead) Neurological: Normal speech, Normal strength at 5/5 x4 extr Assessment And Plan - Current Problems (Diagnosis) (1) New onset a-fib Current Visit: Yes Status: Acute (2) Rhabdomyolysis Current Visit: Yes Status: Acute Qualifiers: Rhabdomyolysis type: non-traumatic Qualified Code(s): M62.82 - Rhabdomyolysis (3) BPH (benign prostatic hyperplasia) Current Visit: Yes Status: Chronic Qualifiers: Lower urinary tract symptom presence: symptoms present Lower urinary tract symptom detail: unspecified Qualified Code(s): N40.1 - Benign prostatic hyperplasia with lower urinary tract symptoms (4) Fall Current Visit: Yes Status: Acute Qualifiers: Encounter type: initial encounter Qualified Code(s): W19.XXXA - Unspecified fall, initial encounter (5) GARO (acute kidney injury) Current Visit: Yes Status: Acute (6) UTI (urinary tract infection) Current Visit: Yes Status: Acute Qualifiers: Urinary tract infection type: acute cystitis Hematuria presence: with hematuria Qualified Code(s): N30.01 - Acute cystitis with hematuria - Plan Patient seen by cardiology. Echocardiogram is unremarkable, no valvular disease, normal EF. His fall is likely secondary to syncope from orthostasis with Flomax implicated. Patient currently in sinus rhythm. Blood pressure is elevated. Start metoprolol twice daily per cardiology recommendation. Possible UTI. Urine culture yielded mixed growth. Continue IV Rocephin. CK level is trending down. Continue to monitor CK Awaiting PT evaluation to assist with disposition.
[2021-08-31] MEDS: carvediloL 6.25 MG TAB PO SCH (18:00)
[2021-09-01] MEDS: HEPARIN 5000 UNIT/ML 1 ML VIAL SQ SCH ×3 (00:52→17:13)
[2021-09-01 06:10] LABS: Absolute Lymphocytes (CBC) 1.5 K/uL (0.7-4.9); Hematocrit 31.8 % (39.6-49.0); Lymphocytes % 24.2 % (15.3-44.8); MPV 7.9 fL (7.6-11.3); RBC Red Blood Cell Count 3.66 M/uL (4.33-5.43)
[2021-09-01 06:28] LABS: Albumin 2.5 g/dL (3.4-5.0); Bilirubin Total 0.7 mg/dL (0.2-1.0); Magnesium 1.5 mg/dL (1.8-2.4); Phosphorus 2.3 mg/dL (2.5-4.9); Potassium 3.3 mmol/L (3.5-5.1); Protein, Total 5.7 g/dL (6.4-8.2)
[2021-09-01] MEDS: INSULIN -REGULAR HUMAN 50 UNIT/0.5 ML ML SQ SCH ×4 (07:30→21:00)
[2021-09-01] MEDS ORDERED: CEFTRIAXONE 1000 MG/VIAL ONE (09:04)
[2021-09-01] MEDS ORDERED: NA CHLORIDE 0.9% 50 ML ONE (09:06)
[2021-09-01] MEDS: CEFTRIAXONE 1,000 MG in NA CHLORIDE 0.9% 50 ML IVPB SCH (09:10)
[2021-09-01] MEDS: TAMSULOSIN 0.4 MG SR CAP PO SCH (09:10)
[2021-09-01] MEDS: LOSARTAN POTASSIUM 50 MG TABLET PO SCH (09:10)
[2021-09-01] MEDS: carvediloL 6.25 MG TAB PO SCH ×2 (09:11→17:13)
[2021-09-01] MEDS ORDERED: POTASSIUM CL SA 10 MEQ TAB PO ONE (11:13)
[2021-09-01] MEDS ORDERED: Magnesium Sulfate 2gm IVPB 2 G/50 ML BAG IV ONE (11:14)
[2021-09-01] MEDS: POTASS/SODIUM PHOSPHATE 1 PKT POWD.PACK PO SCH ×3 (11:37→15:36)
--- NOTE | 2021-09-01 18:05 | P.PN ---
Subjective Date of Service: 09/01/21 Primary Care Provider: Izaiah Chief Complaint: Rhabdomyolysis, GARO Patient has no new complaint. He is alert and oriented x3 today CK level is trending down. No cough or shortness of breath. He is tolerating room air. No fever. Physical Examination - Vital Signs Temperature: 97.6 F Blood Pressure: 125/56 Pulse: 63 Respirations: 14 Pulse Ox (%): 98 - Physical Exam General: In no apparent distress, Oriented x3 HEENT: Mucous membr. moist/pink Neck: Supple, JVD not distended Respiratory: Clear to auscultation bilaterally, Normal air movement Cardiovascular: No edema, Regular rate/rhythm, Normal S1 S2 Gastrointestinal: Normal bowel sounds, Soft and benign, Non-distended, No tenderness Musculoskeletal: No swelling, No tenderness Integumentary: No rashes, No erythema, No cyanosis Neurological: Normal strength at 5/5 x4 extr - Studies Microbiology Data (last 24 hrs): 08/30/21 00:39 Catheterized Urine [place] Count - Final >100,000 CFU/ML. 08/30/21 00:39 Catheterized Urine - Final Enterococcus Faecalis Assessment And Plan - Current Problems (Diagnosis) (1) New onset a-fib Current Visit: Yes Status: Acute (2) Rhabdomyolysis Current Visit: Yes Status: Acute Qualifiers: Rhabdomyolysis type: non-traumatic Qualified Code(s): M62.82 - Rhabdomyolysis (3) BPH (benign prostatic hyperplasia) Current Visit: Yes Status: Chronic Qualifiers: Lower urinary tract symptom presence: symptoms present Lower urinary tract symptom detail: unspecified Qualified Code(s): N40.1 - Benign prostatic hyperplasia with lower urinary tract symptoms (4) Fall Current Visit: Yes Status: Acute Qualifiers: Encounter type: initial encounter Qualified Code(s): W19.XXXA - Unspecified fall, initial encounter (5) GARO (acute kidney injury) Current Visit: Yes Status: Acute (6) UTI (urinary tract infection) Current Visit: Yes Status: Acute Qualifiers: Urinary tract infection type: acute cystitis Hematuria presence: with hematuria Qualified Code(s): N30.01 - Acute cystitis with hematuria - Plan Echocardiogram is unremarkable, no valvular disease, normal EF. His fall is likely secondary to syncope from orthostasis with Flomax implicated. Patient in sinus rhythm. Continue metoprolol. Possible UTI. Urine culture yielded mixed growth. Continue IV Rocephin. CK level continues to trend. Continue to monitor CK Seen by PT and rehab recommended. Social service assisting with disposition to skilled rehab.
[2021-09-02] MEDS: HEPARIN 5000 UNIT/ML 1 ML VIAL SQ SCH ×3 (01:44→16:27)
[2021-09-02 06:08] LABS: Magnesium 1.9 mg/dL (1.8-2.4); Potassium 3.3 mmol/L (3.5-5.1)
[2021-09-02] MEDS: INSULIN -REGULAR HUMAN 50 UNIT/0.5 ML ML SQ SCH ×4 (07:30→21:00)
[2021-09-02] MEDS: carvediloL 6.25 MG TAB PO SCH ×2 (08:00→16:27)
[2021-09-02] MEDS: TAMSULOSIN 0.4 MG SR CAP PO SCH (09:00)
[2021-09-02] MEDS: LOSARTAN POTASSIUM 50 MG TABLET PO SCH (09:00)
[2021-09-02] MEDS: CEFTRIAXONE 1,000 MG in NA CHLORIDE 0.9% 50 ML IVPB SCH (09:00)
--- NOTE | 2021-09-02 13:41 | P.PN ---
Subjective Date of Service: 09/02/21 Primary Care Provider: Izaiah Chief Complaint: Rhabdomyolysis, GARO Patient has no complaint. He is alert and oriented. No cough or shortness of breath. He is tolerating room air. No fever. He is tolerating his diet. Physical Examination - Vital Signs Temperature: 98 F Blood Pressure: 137/63 Pulse: 60 Respirations: 16 Pulse Ox (%): 94 - Physical Exam General: Alert, In no apparent distress, Oriented x3 HEENT: Mucous membr. moist/pink Neck: JVD not distended Respiratory: Clear to auscultation bilaterally, Normal air movement Cardiovascular: No edema, Regular rate/rhythm, Normal S1 S2 Gastrointestinal: Soft and benign, Non-distended, No tenderness Musculoskeletal: No swelling Integumentary: No rashes Neurological: Normal strength at 5/5 x4 extr - Studies Microbiology Data (last 24 hrs): 08/30/21 00:39 Catheterized Urine [place] Count - Final >100,000 CFU/ML. 08/30/21 00:39 Catheterized Urine - Final Enterococcus Faecalis Assessment And Plan - Current Problems (Diagnosis) (1) New onset a-fib Current Visit: Yes Status: Acute (2) Rhabdomyolysis Current Visit: Yes Status: Acute Qualifiers: Rhabdomyolysis type: non-traumatic Qualified Code(s): M62.82 - Rhabdomyolysis (3) BPH (benign prostatic hyperplasia) Current Visit: Yes Status: Chronic Qualifiers: Lower urinary tract symptom presence: symptoms present Lower urinary tract symptom detail: unspecified Qualified Code(s): N40.1 - Benign prostatic hyperplasia with lower urinary tract symptoms (4) Fall Current Visit: Yes Status: Acute Qualifiers: Encounter type: initial encounter Qualified Code(s): W19.XXXA - Unspecified fall, initial encounter (5) GARO (acute kidney injury) Current Visit: Yes Status: Acute (6) UTI (urinary tract infection) Current Visit: Yes Status: Acute Qualifiers: Urinary tract infection type: acute cystitis Hematuria presence: with hematuria Qualified Code(s): N30.01 - Acute cystitis with hematuria - Plan Echocardiogram is unremarkable, no valvular disease, normal EF. His fall is likely secondary to syncope from orthostasis with Flomax implicated. Patient in sinus rhythm. Continue metoprolol. Possible UTI. Urine culture yielded mixed growth. Transition from IV Rocephin to oral cefdinir. Patient to complete 5 days of antibiotics. CK level is down to 391. Seen by PT and rehab recommended. Social service assisting with disposition to skilled rehab.
[2021-09-02] MEDS ORDERED: POTASSIUM 25 MEQ EFFERV TAB PO ONE (18:35)
[2021-09-02] MEDS ORDERED: POTASSIUM 25 MEQ EFFERV TAB ONE (18:44)
[2021-09-02] MEDS: CEFDINIR 300 MG CAP PO SCH (21:09)
[2021-09-03] MEDS: HEPARIN 5000 UNIT/ML 1 ML VIAL SQ SCH ×3 (00:26→16:52)
[2021-09-03 04:39] LABS: Potassium 3.7 mmol/L (3.5-5.1)
[2021-09-03] MEDS ORDERED: POTASSIUM CL SA 10 MEQ TAB PO ONE (05:38)
[2021-09-03] MEDS: carvediloL 6.25 MG TAB PO SCH ×2 (06:25→16:52)
[2021-09-03] MEDS ORDERED: POTASSIUM 25 MEQ EFFERV TAB PO ONE (07:11)
[2021-09-03] MEDS: INSULIN -REGULAR HUMAN 50 UNIT/0.5 ML ML SQ SCH ×4 (07:30→20:36)
[2021-09-03] MEDS ORDERED: HYDRALAZINE HCL 20 MG/ML VIAL IV PRN (08:49)
[2021-09-03] MEDS: TAMSULOSIN 0.4 MG SR CAP PO SCH (09:04)
[2021-09-03] MEDS: LOSARTAN POTASSIUM 50 MG TABLET PO SCH (09:04)
[2021-09-03] MEDS: CEFDINIR 300 MG CAP PO SCH ×2 (09:05→20:37)
--- NOTE | 2021-09-03 12:23 | P.PN ---
Subjective Date of Service: 09/03/21 Primary Care Provider: Izaiah Chief Complaint: Rhabdomyolysis, GARO Patient has no complaint. No cough or shortness of breath. He is tolerating room air. No fever. He is eating well. Physical Examination - Vital Signs Temperature: 98.2 F Blood Pressure: 153/64 Pulse: 64 Respirations: 16 Pulse Ox (%): 92 - Physical Exam General: Alert, In no apparent distress, Oriented x3 Neck: JVD not distended Respiratory: Clear to auscultation bilaterally, Normal air movement Cardiovascular: No edema, Regular rate/rhythm, Normal S1 S2 Gastrointestinal: Soft and benign, Non-distended, No tenderness Musculoskeletal: No swelling Integumentary: No rashes Neurological: Normal strength at 5/5 x4 extr Assessment And Plan - Current Problems (Diagnosis) (1) New onset a-fib Current Visit: Yes Status: Acute (2) Rhabdomyolysis Current Visit: Yes Status: Acute Qualifiers: Rhabdomyolysis type: non-traumatic Qualified Code(s): M62.82 - Rhabdomyolysis (3) BPH (benign prostatic hyperplasia) Current Visit: Yes Status: Chronic Qualifiers: Lower urinary tract symptom presence: symptoms present Lower urinary tract symptom detail: unspecified Qualified Code(s): N40.1 - Benign prostatic hyperplasia with lower urinary tract symptoms (4) Fall Current Visit: Yes Status: Acute Qualifiers: Encounter type: initial encounter Qualified Code(s): W19.XXXA - Unspecified fall, initial encounter (5) GARO (acute kidney injury) Current Visit: Yes Status: Acute (6) UTI (urinary tract infection) Current Visit: Yes Status: Acute Qualifiers: Urinary tract infection type: acute cystitis Hematuria presence: with hematuria Qualified Code(s): N30.01 - Acute cystitis with hematuria - Plan Echocardiogram is unremarkable, normal EF. His fall is likely secondary to syncope from orthostasis with Flomax implicated. Patient in sinus rhythm. Continue Coreg Possible UTI. Urine culture yielded mixed growth. Transition from IV Rocephin to oral cefdinir. Patient to complete 5 days of antibiotics. CK level significantly improved. Rhabdomyolysis resolved. He is receiving PT and rehab recommended. Social service assisting with disposition to skilled rehab.
[2021-09-04] MEDS: HEPARIN 5000 UNIT/ML 1 ML VIAL SQ SCH ×3 (00:44→16:42)
[2021-09-04 04:09] LABS: Potassium 3.8 mmol/L (3.5-5.1)
[2021-09-04] MEDS: INSULIN -REGULAR HUMAN 50 UNIT/0.5 ML ML SQ SCH ×4 (07:30→20:37)
[2021-09-04] MEDS: CEFDINIR 300 MG CAP PO SCH ×2 (08:40→20:36)
[2021-09-04] MEDS: TAMSULOSIN 0.4 MG SR CAP PO SCH (08:40)
[2021-09-04] MEDS: LOSARTAN POTASSIUM 50 MG TABLET PO SCH (08:42)
[2021-09-04] MEDS: carvediloL 6.25 MG TAB PO SCH ×2 (08:43→16:42)
[2021-09-04] MEDS ORDERED: POTASSIUM CL SA 10 MEQ TAB PO ONE (09:00)
--- NOTE | 2021-09-04 13:36 | P.PN ---
Subjective Date of Service: 09/04/21 Primary Care Provider: Izaiah Chief Complaint: Rhabdomyolysis, GARO Patient has no new complaint. He denies any shortness of breath. No fever. He is eating well. Physical Examination - Vital Signs Temperature: 97.2 F Blood Pressure: 143/65 Pulse: 55 Respirations: 16 Pulse Ox (%): 97 - Physical Exam General: Alert, In no apparent distress, Oriented x3 HEENT: Mucous membr. moist/pink Respiratory: Clear to auscultation bilaterally, Normal air movement Cardiovascular: No edema, Regular rate/rhythm, Normal S1 S2 Gastrointestinal: Normal bowel sounds, Soft and benign, Non-distended Musculoskeletal: No swelling Integumentary: No rashes Neurological: Normal strength at 5/5 x4 extr Assessment And Plan - Current Problems (Diagnosis) (1) New onset a-fib Current Visit: Yes Status: Acute (2) Rhabdomyolysis Current Visit: Yes Status: Acute Qualifiers: Rhabdomyolysis type: non-traumatic Qualified Code(s): M62.82 - Rhabdomyolysis (3) BPH (benign prostatic hyperplasia) Current Visit: Yes Status: Chronic Qualifiers: Lower urinary tract symptom presence: symptoms present Lower urinary tract symptom detail: unspecified Qualified Code(s): N40.1 - Benign prostatic hyperplasia with lower urinary tract symptoms (4) Fall Current Visit: Yes Status: Acute Qualifiers: Encounter type: initial encounter Qualified Code(s): W19.XXXA - Unspecified fall, initial encounter (5) GARO (acute kidney injury) Current Visit: Yes Status: Acute (6) UTI (urinary tract infection) Current Visit: Yes Status: Acute Qualifiers: Urinary tract infection type: acute cystitis Hematuria presence: with hematuria Qualified Code(s): N30.01 - Acute cystitis with hematuria - Plan New onset atrial fibrillation. Patient currently in sinus rhythm. Echocardiogram is unremarkable, normal EF. His fall is likely secondary to syncope from orthostasis with Flomax implicated. Continue Coreg. Seen by Dr. Flood. Possible UTI. Urine culture yielded mixed growth. Transitioned from IV Rocephin to oral cefdinir. Patient to complete 5 days of antibiotics. CK level significantly improved. Rhabdomyolysis resolved. He is receiving PT and rehab recommended. Social service assisting with disposition to skilled rehab. Awaiting placement.
[2021-09-04 18:14] VITALS: O2SAT 95
[2021-09-05] MEDS: HEPARIN 5000 UNIT/ML 1 ML VIAL SQ SCH ×2 (00:55→10:05)
[2021-09-05 04:17] LABS: Absolute Lymphocytes (CBC) 1.5 K/uL (0.7-4.9); Hematocrit 33.6 % (39.6-49.0); Lymphocytes % 16.7 % (15.3-44.8)
[2021-09-05 04:22] LABS: Magnesium 1.8 mg/dL (1.8-2.4); Potassium 3.7 mmol/L (3.5-5.1)
[2021-09-05] MEDS ORDERED: MAGNESIUM SULFATE 1 gm IVPB 1 GM/100 ML BAG IV ONE (05:50)
--- NOTE | 2021-09-05 06:46 | P.PN ---
Date of Service: 09/05/21
[2021-09-05] MEDS: INSULIN -REGULAR HUMAN 50 UNIT/0.5 ML ML SQ SCH ×2 (07:30→11:30)
[2021-09-05] MEDS: LOSARTAN POTASSIUM 50 MG TABLET PO SCH (09:00)
[2021-09-05] MEDS ORDERED: PIPER TAZO 3.375 GM in NA CHLORIDE 0.9% 100 ML IV SCH (09:00)
[2021-09-05] MEDS ORDERED: AMOX/K CLAV 875 MG TAB PO SCH (09:00)
[2021-09-05] MEDS: POTASSIUM CL SA 10 MEQ TAB PO ONE ×2 (09:00→10:05)
[2021-09-05] MEDS: carvediloL 6.25 MG TAB PO SCH (10:03)
[2021-09-05] MEDS: TAMSULOSIN 0.4 MG SR CAP PO SCH (10:10)
[2021-09-05 13:25] VITALS: BP 121/65; TEMP 97.4
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
--- NOTE | 2021-09-07 13:42 | PN ---
Date of Progress Note: 09/05/2021 We had seen Mr. Landry earlier when he came in for rhabdomyolysis. Had a normal echocardiogram. I was asked to give my opinion regarding his atrial flutter. When he came in he was in atrial flutter, bu t his heart rate has been controlled in the 70s to 80s. His mental status has improved. I think I w ould keep him on a low-dose beta-gasper. At home on Eliquis 2.5 mg b.i.d. Again as the echo was no rmal I do not think that his symptoms were related to the atrial fibrillation, but I think in the fut ure we will get an outpatient event monitor to rule out sick sinus syndrome and bradycardia. Otherwi se, he can go home whenever it is okay with admitting physician, Dr. Salguero. DANNY/BRANDAN Voice ID: [id number] Report ID: [id number]
== END 2021-09-05 14:30 | DRG 682 ==
LOC: ER 20:39 → ERHOLD 08-30 01:32 → 2ND 08-30 03:09
PROVIDERS: ADMIT Internal Medicine; ATTEND Internal Medicine
DX: N17.9 Acute kidney failure, unspecified (principal); U07.1 COVID-19; M62.82 Rhabdomyolysis; N30.01 Acute cystitis with hematuria; B95.2 Enterococcus as the cause of diseases classified elsewhere; N40.1 Benign prostatic hyperplasia with lower urinary tract symptoms; I48.0 Paroxysmal atrial fibrillation; E78.5 Hyperlipidemia, unspecified; I12.9 Hypertensive chronic kidney disease with stage 1 through stage 4 chronic kidney disease, or unspecified chronic kidney disease; E11.22 Type 2 diabetes mellitus with diabetic chronic kidney disease; N18.32 Chronic kidney disease, stage 3b; S00.11XA Contusion of right eyelid and periocular area, initial encounter; W18.30XA Fall on same level, unspecified, initial encounter; Y92.009 Unspecified place in unspecified non-institutional (private) residence as the place of occurrence of the external cause; E83.42 Hypomagnesemia; R77.8 Other specified abnormalities of plasma proteins; E87.6 Hypokalemia
CPT/HCPCS: 0240U; 36415; 70450; 70486; 71045; 71250; 72125; 76377; 80048; 80053; 80061; 80076; 81003; 82550; 82553; 82947; 83605; 83690; 83735; 83880; 84100; 84132; 84145; 84443; 84484; 84550; 85025; 85610; 87040; 87077; 87086; 87088; 87186; 93005; 93306; 96365; 96366; 96367; 96374; 96375; 97110; 97116; 97161; 97530; 99284; 99285; J0360; J1644; J1815; J2543; J3475; J3490; J7030; U0003

== ENCOUNTER 2022-02-06 15:26 | Inpatient (IN) | payer OTHER, SELFPAY ==
--- NOTE | 2022-02-06 16:48 | RAD REPORT ---
EXAM DESCRIPTION: CT - Head C Spine Cap Wo Con - 02/06/2022 4:29 pm CLINICAL HISTORY: fall COMPARISON: <Comparisons> TECHNIQUE: Axial [address] head images were obtained. Axial [address] cervical spine images were obtain ed with sagittal and coronal reconstruction images reviewed. Axial 5 mm images of the chest, abdomen and pelvis were obtained. All CT scans are performed using dose optimization technique as appropriate and may include automated exposure control or mA/KV adjustment according to patient size. FINDINGS: No intracranial hemorrhage, mass or edema. No midline shift or abnormal fluid collection. Mild to moderate for age atrophy changes are present. Atrophy extends into the cerebellum as well. Keith guthrie has advanced chronic ischemic change in the cerebral white matter, brainstem and basal ganglia. Ventricles are enlarged out of proportion to the volume loss. Correlation is needed with any history normal pressure hydrocephalus. Dense arterial tree calcifications are present. Mastoid air cells and paranasal sinuses are clear. No skull fracture. Cervical bodies are normal in height and alignment.Facet degenerative change and uncovertebral joint hypertrophy changes are present causing mild foraminal stenosis at C6-7, moderate stenosis at C5-6 an d mild at C4-5. Moderately advanced left foraminal stenosis at C3-4.No fracture or acute bone finding .All disc levels except C2-3 are narrowed with prominent endplate spurring seen at C5-6 and C6-7.No p revertebral soft tissue thickening or paraspinal mass.Central canal detail is inherently limited on C T imaging. No acute lung parenchymal process. There is minimal pleural fluid and atelectasis along the posterior chest. No mediastinal hematoma and the aorta and pulmonary arteries are unremarkable. No chest laury l mass or abnormal axillary finding. No displaced rib fracture or other significant bony finding. De nse aortic calcifications are present. CT abdomen and pelvis show no injury to solid abdominal viscera. Gallbladder and biliary tree are unr emarkable. No bowel injury or significant finding. No free air, free fluid or abnormal stranding. No hernia, mass or bulky lymphadenopathy. No urinary bladder abnormality. Left hemipelvis Paget's or fibrous dysplasia changes present as an incidental finding. Degenerative a nd scoliotic changes are present throughout the spine without acute fracture. IMPRESSION: No hemorrhage, edema or acute intracranial finding. Ventriculomegaly is present out of p roportion to volume loss. Correlation is needed with any history of normal pressure hydrocephalus. Cervical spine degenerative change without acute finding. Central canal detail is inherently limited. Minimal pleural fluid and atelectasis changes along the posterior aspect of each hemithorax. No acute traumatic injury to the chest. No acute abdominal or pelvic finding. Nonacute findings detailed in the body of the report.
[2022-02-06 17:30] LABS: Absolute Lymphocytes (CBC) 1.3 K/uL (0.7-4.9); Hematocrit 44.8 % (39.6-49.0); Lymphocytes % 5.3 % (15.3-44.8); MCV 88.8 fL (80-100); MPV 7.9 fL (7.6-11.3); RBC Red Blood Cell Count 5.05 M/uL (4.33-5.43)
[2022-02-06 17:31] LABS: Protime INR 1.05
[2022-02-06 17:33] LABS: Urine Blood 3+ (Negative); Urine Glucose Negative (Negative); Urine Protein 3+ (Negative); Urine Specific Gravity >=1.030 (1.005-1.030); Urine pH 5.5 (5.0-7.0)
[2022-02-06 17:49] LABS: Calcium Oxalate Crystals- Ur Few /HPF (None Seen); Urine Bacteria <20 /HPF (<20); Urine Mucus 1+ /HPF (None Seen)
[2022-02-06 18:17] LABS: Albumin 3.5 g/dL (3.4-5.0); Bilirubin Direct 0.3 mg/dL (0-0.2); Bilirubin Total 1.1 mg/dL (0.2-1.0); Magnesium 2.2 mg/dL (1.8-2.4); Potassium 4.1 mmol/L (3.5-5.1); Protein, Total 7.9 g/dL (6.4-8.2); Troponin High Sensitivity 114.5 pg/mL (<58.9)
--- NOTE | 2022-02-06 18:41 | ER ---
Nurse's Notes [facility] Name: Royer Landry Age: 89 yrs Sex: Male : 1930 Arrival Date: 02/06/2022 Time: 15:38 Bed 28 Private MD: Diagnosis: Rhabdomyolysis;Weakness;Fall on same level from slipping, tripping and stumbling with subsequent striking against object;Elevated white blood cell count Presentation: 02/06 15:38 Chief complaint: EMS states: "pt was found in his attic after about 1.5 to 2 days. his [facility] family found him initially unconscious, but was awake and mumbling by the time we got there. he is A\\T\\O X 1-2 at this time. the family thinks that he may have had a fall. reporting right shoulder and right hip pain. normal BGL. slightly elevated heart rate, but otherwise stable vital signs.". Coronavirus screen: At this time, the client does not indicate any symptoms associated with coronavirus-19. Ebola Screen: No symptoms or risks identified at this time. Initial Sepsis Screen: Does the patient meet any 2 criteria? No. Patient's initial sepsis screen is negative. Does the patient have a suspected source of infection? No. Patient's initial sepsis screen is negative. Risk Assessment: Do you want to hurt yourself or someone else? Patient reports no desire to harm self or others. Onset of symptoms was February 06, 2022. 15:38 Method Of Arrival: EMS: [place] [id number] 15:38 Acuity: VANI 2 jd3 Historical: - Allergies: 15:42 No Known Allergies; jd3 - Home Meds: 15:42 Unable to obtain [Active]; jd3 - PMHx: 15:42 Dementia; jd3 - PSHx: 15:42 Unable to Obtain; jd3 - Immunization history:: Adult Immunizations unknown. - Social history:: Smoking status: unknown. Screenin:50 Abuse screen: Denies threats or abuse. Nutritional screening: No deficits noted. jd3 Tuberculosis screening: No symptoms or risk factors identified. Fall Risk IV access (20 points). Ambulatory Aid- None/Bed Rest/Nurse Assist (0 pts). Gait- Impaired (20 pts.). Mental Status- Overestimates/Forgets Limitations (15 pts.). Total Abernathy Fall Scale indicates High Risk Score (45 or more points). Fall prevention measures have been instituted. Side Rails Up X 2 Placed Close to Nursing Station Frequent Obs/Assessments Occuring Family Present and informed to notify staff if the need to leave the bedside As available patient and family educated on Fall Prevention Program and Strategies. Assessment: 15:43 General: Appears comfortable, Behavior is calm, cooperative. Pain: Complains of pain in jd3 right hip. Neuro: Bauer Agitation-Sedation Scale (RASS): 0 - Alert and Calm Level of Consciousness is awake, obeys commands, confused, lethargic, Oriented to person, situation, Lead Developer are equal bilaterally Weakness in right leg(s) Pupils are irregular, Intact. Cardiovascular: Heart tones present Capillary refill is > 3 seconds Patient's skin is warm and dry. Rhythm is irregular. Respiratory: Airway is patent Respiratory effort is even, unlabored, Respiratory pattern is regular, symmetrical, Breath sounds are clear bilaterally. Denies cough, shortness of breath. GI: Abdomen is non-distended, Bowel sounds present X 4 quads. Abd is soft and non tender X 4 quads. Patient currently denies nausea, vomiting. : pt had soiled himself. pt changed into dry pt gown and brief at this time. EENT: No signs and/or symptoms were reported regarding the EENT system. Derm: Skin is intact, Skin is dry, Skin is pale, Skin temperature is hot skin discoloration noted to right hip with small blisters. bruising also noted to this area. Musculoskeletal: Circulation, motion, and sensation intact. Range of motion: limited in left leg due to pain. 16:57 Reassessment: No changes from previously documented assessment. Patient and/or family jd3 updated on plan of care and expected duration. Pain level reassessed. 17:59 Reassessment: Patient appears in no apparent distress at this time. No changes from jd3 previously documented assessment. Patient and/or family updated on plan of care and expected duration. Pain level reassessed. 19:13 Reassessment: Patient appears in no apparent distress at this time. No changes from jd3 previously documented assessment. Patient and/or family updated on plan of care and expected duration. Pain level reassessed. 21:23 General: Appears in no apparent distress. comfortable, Behavior is calm, cooperative, lg3 drowsy. Pain: Complains of pain in right hip. Neuro: Bauer Agitation-Sedation Scale (RASS): -1 Drowsy Level of Consciousness is awake, obeys commands, confused, Oriented to person, situation, Lead Developer are equal bilaterally Weakness in right leg(s). Cardiovascular: No deficits noted. Denies chest pain, shortness of breath, Capillary refill < 3 seconds Clubbing of nail beds is absent JVD is absent Patient's skin is warm and dry. Respiratory: No deficits noted. Airway is patent Trachea midline Respiratory effort is even, unlabored, Respiratory pattern is regular, symmetrical, Breath sounds are clear bilaterally. GI: No deficits noted. No signs and/or symptoms were reported involving the gastrointestinal system. Abdomen is flat, non-distended, Bowel sounds present X 4 quads. Abd is soft and non tender X 4 quads. : No deficits noted. No signs and/or symptoms were reported regarding the genitourinary system. EENT: No deficits noted. No signs and/or symptoms were reported regarding the EENT system. Derm: No deficits noted. Skin is intact, is thin, Skin is dry, Skin is pale, Skin temperature is warm. Musculoskeletal: Circulation, motion, and sensation intact. Range of motion: limited in right hip. Vital Signs: 15:43 BP 146 / 87; Pulse 90; Resp 26 S; Temp 100.1(R); Pulse Ox 98% on R/A; jd3 16:57 Pulse 102; Resp 20; Pulse Ox 100% on R/A; jd3 17:59 BP 137 / 87; Pulse 101; Resp 19; Pulse Ox 99% on R/A; jd3 21:25 BP 160 / 75; Pulse 98; Resp 20; Pulse Ox 97% on R/A; lg3 ED Course: 15:38 Patient arrived in ED. jd3 15:38 Esequiel Richard RN is Primary Nurse. jd3 15:40 Estrada Mcrae PA is PHCP. cp 15:40 Estrada Wiggins MD is Attending Physician. cp 15:42 Triage completed. jd3 15:43 Arm band placed on. jd3 15:50 Patient has correct armband on for positive identification. Placed in gown. Bed in low jd3 position. Call light in reach. Side rails up X2. Adult w/ patient. Client placed on continuous cardiac and pulse oximetry monitoring. NIBP monitoring applied. supervisor residential on. Pulse ox on. NIBP on. Lights dimmed. Verbal reassurance given. Head of bed elevated. 16:04 Maintain EMS IV. Dressing intact. Good blood return noted. Site clean \\T\\ dry. Gauge \\T\\ judith 3 site: 20 G left Forearm. 17:40 SARS-COV-2 RT PCR (Document "Date of Onset" if Symptomatic) Sent. [facility] 17:40 Urine Microscopic Only Sent. [facility] 17:40 Fink cath inserted, using sterile technique, 18 Fr., by al, balloon inflated, to [facility] gravity drainage, urine specimen collected. returned charmaine urine. Patient tolerated well. 18:39 Pranav Greenberg MD is Hospitalizing Provider. cp 19:22 Primary Nurse role handed off by Esequiel Richard RN 2 02/07 00:41 No provider procedures requiring assistance completed. Patient admitted, IV remains in [facility] place. intact, No redness/swelling at site. Administered Medications: 02/06 19:12 Drug: NS 0.9% 500 ml Route: IV; Rate: bolus; Site: left antecubital; [facility] 02/07 00:42 Follow up: Response: No adverse reaction; IV Status: Completed infusion; IV Intake: lg3 500ml 02/06 19:12 Drug: Cefepime 1 grams Route: IVPB; Rate: 200 ml/hr; Infused Over: 30 mins; Site: left [facility] antecubital; 02/07 00:41 Follow up: Response: No adverse reaction; IV Status: Completed infusion; IV Intake: lg3 100ml 02/06 19:12 Drug: Thiamine 100 mg Route: IV; Rate: calculated rate; Site: left antecubital; [facility] 02/07 00:42 Follow up: Response: No adverse reaction; IV Status: Completed infusion [facility] 02/06 19:12 Drug: foLIC Acid 1 mg Route: IVPB; Site: left antecubital; [facility] 02/07 00:42 Follow up: Response: No adverse reaction; IV Status: Completed infusion [facility] 02/06 19:27 Drug: Aspirin Suppository 300 mg Route: SC; [facility] 02/07 00:41 Follow up: Response: No adverse reaction [facility] Medication: 02/06 15:50 VIS not applicable for this client. jd3 Intake: 02/07 00:41 IV: 100ml; Total: 100ml. lg3 00:42 IV: 500ml; Total: 600ml. lg3 Outcome: 02/06 18:41 Decision to Hospitalize by Provider. cp 02/07 00:41 Admitted to ER Hold. Please see [facility] for further documentation. lg3 Condition: stable Instructed on the need for admit. 15:06 Patient left the ED. iw Signatures: Karin Peñaloza RN RN iw Estrada Mcrae PA PA cp Davies, Jonathon RN RN jd3 David Sunshine mw2 Laura Rubio RN RN lg3 Dayna Batista RN RN kc6 Corrections: (The following items were deleted from the chart) 02/06 15:43 15:42 Home Meds: Unable to obtain; jd3 jd3 15:43 15:42 PMHx: Unable to Obtain; jd3 jd3 19:46 19:13 Reassessment: Patient appears in no apparent distress at this time. No changes jd3 from previously documented assessment. Patient and/or family updated on plan of care and expected duration. Pain level reassessed. Patient is alert, oriented x 3, equal unlabored respirations, skin warm/dry/pink. kc6
--- NOTE | 2022-02-06 18:42 | EDPHYS ---
Physician Documentation [facility] Name: Royer Landry Age: 89 yrs Sex: Male : 1930 Arrival Date: 02/06/2022 Time: 15:38 Bed 28 Private MD: ED Physician Estrada Wiggins HPI: 02/06 15:45 This 89 yrs old Male presents to ER via EMS with complaints of Fall. cp 15:45 Details of fall: The patient fell from an upright position. cp 15:45 Onset: The symptoms/episode began/occurred at an unknown time. Associated injuries: The cp patient sustained neck injury, pain. Severity of symptoms: in the emergency department the symptoms are unchanged, despite EMS interventions, confusion. Unable to obtain HPI due to altered mental status, baseline dementia. Son reports last time he spoke with patient was Saturday night and that he was unable to contact him today so he went to check on him. Patient was reportedly found on ground in attic. Historical: - Allergies: 15:42 No Known Allergies; jd3 - Home Meds: 15:42 Unable to obtain [Active]; jd3 - PMHx: 15:42 Dementia; jd3 - PSHx: 15:42 Unable to Obtain; jd3 - Immunization history:: Adult Immunizations unknown. - Social history:: Smoking status: unknown. ROS: 15:50 Constitutional: Negative for fever. cp 15:50 Neck: Positive for pain with movement. cp 15:50 Cardiovascular: Negative for chest pain. 15:50 Respiratory: Negative for cough, wheezing. 15:50 Abdomen/GI: Negative for abdominal pain, vomiting, diarrhea. 15:50 Back: Positive for pain with movement. 15:50 Neuro: Positive for altered mental status, weakness. 15:50 All other systems are negative. Exam: 15:55 Constitutional: The patient appears in no acute distress, alert, awake, cp non-diaphoretic, non-toxic, well developed, well nourished. 15:55 Head/Face: Normocephalic, atraumatic. cp 15:55 Eyes: Periorbital structures: appear normal, Pupils: irregularly shaped, in the right eye, pinpoint, left eye, Extraocular movements: intact throughout, Conjunctiva: normal, no exudate, no injection, Sclera: no appreciated abnormality, Lids and lashes: appear normal, bilaterally. 15:55 ENT: External ear(s): are unremarkable, Ear canal(s): are normal, clear, TM's: dullness, bilaterally, Nose: is normal, Mouth: Lips: moist, Oral mucosa: moist, Posterior pharynx: Airway: no evidence of obstruction, patent. 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 15:55 Chest/axilla: Inspection: normal, Palpation: crepitus, is not appreciated, tenderness, is not appreciated. 15:55 Cardiovascular: Rate: normal, Rhythm: regular. 15:55 Respiratory: the patient does not display signs of respiratory distress, Respirations: normal, no use of accessory muscles, no retractions, labored breathing, is not present, Breath sounds: are clear throughout, no decreased breath sounds, no stridor, no wheezing. 15:55 Abdomen/GI: Inspection: abdomen appears normal, Bowel sounds: active, all quadrants, Palpation: soft, in all quadrants, mild abdominal tenderness, in the right lower quadrant, rebound tenderness, is not appreciated, involuntary guarding, is not appreciated. 15:55 Back: vertebral tenderness, is not appreciated, Straight leg raises: of both lower extremities does not illicit pain. 15:55 Skin: cellulitis, is not appreciated, no rash present. 15:55 Neuro: Orientation: to person, Mentation: able to follow commands, confused, Motor: moves all fours, general weakness with no focal deficits, Sensation: no obvious gross deficits. 16:10 ECG was reviewed by the Attending Physician. Vital Signs: 15:43 BP 146 / 87; Pulse 90; Resp 26 S; Temp 100.1(R); Pulse Ox 98% on R/A; jd3 16:57 Pulse 102; Resp 20; Pulse Ox 100% on R/A; jd3 17:59 BP 137 / 87; Pulse 101; Resp 19; Pulse Ox 99% on R/A; jd3 21:25 BP 160 / 75; Pulse 98; Resp 20; Pulse Ox 97% on R/A; lg3 MDM: 15:44 Patient medically screened. 18:45 Data reviewed: vital signs, nurses notes, lab test result(s), EKG, radiologic studies, cp CT scan. 18:45 Data interpreted: manager monitoring: rate is 101 beats/min, rhythm is normal sinus cp rhythm, Pulse oximetry: on room air is 99 %. Interpretation: normal. Plan: O2 by NC applied. Test interpretation: by ED physician or midlevel provider: ECG, plain radiologic studies. Counseling: I had a detailed discussion with the patient and/or guardian regarding: the historical points, exam findings, and any diagnostic results supporting the discharge/admit diagnosis, lab results, radiology results, the need for further work-up and treatment in the hospital. Response to treatment: the patient's symptoms have mildly improved after treatment. Physician consultation: Geovanni REYNOSO was called at 18:40, was contacted at 18:40, regarding admission, to the telemetry unit. patient's condition. 02/06 15:44 Order name: Basic Metabolic Panel cp 02/06 15:44 Order name: CBC with Diff cp 02/06 15:44 Order name: LFT's cp 02/06 15:44 Order name: Magnesium cp 02/06 15:44 Order name: NT PRO-BNP cp 02/06 15:44 Order name: PT-INR cp 02/06 15:44 Order name: Troponin HS cp 02/06 15:44 Order name: CK cp 02/06 15:44 Order name: Lactate cp 02/06 15:44 Order name: Procalcitonin cp 02/06 15:44 Order name: Blood Culture Adult (2) cp 02/06 15:44 Order name: Urine Microscopic Only cp 02/06 15:49 Order name: SARS-COV-2 RT PCR (Document "Date of Onset" if Symptomatic) cp 02/06 17:31 Order name: Protime (+INR); Complete Time: 17:58 EDMS 02/06 17:59 Interpretation: Within normal limits. cp 02/06 17:33 Order name: Urine Dipstick-Ancillary; Complete Time: 17:58 EDMS 02/06 17:58 Interpretation: Normal except: UBLD 3+; UPROT 3+. cp 02/06 17:46 Order name: Lactate; Complete Time: 17:58 EDMS 02/06 17:49 Order name: Urine Microscopic Only; Complete Time: 17:58 EDMS 02/06 17:58 Interpretation: Normal except: URBC 5-10; HYAL 5-10. cp 02/06 17:51 Order name: CBC with Automated Diff; Complete Time: 05:16 EDMS 02/06 17:58 Interpretation: Normal except: WBC 24.80; YASMIN% 85.9; LYM% 5.3; NEUT A 21.3; MNA 2.1. 02/06 18:07 Order name: SARS-COV-2 RT PCR; Complete Time: 18:23 EDMS 02/06 18:16 Order name: Procalcitonin; Complete Time: 18:23 EDMS 02/06 18:23 Interpretation: Reviewed. 02/06 18:22 Order name: Basic Metabolic Panel; Complete Time: 18:23 EDMS 02/06 18:23 Interpretation: Normal except: NA 146; CL 113; GLUC 141; BUN 41; CRE 1.52; GFR 44. 02/06 18:22 Order name: Liver (Hepatic) Function; Complete Time: 18:23 EDMS 02/06 18:24 Interpretation: Normal except: AST 316; ALT 122; BILIT 1.1; BILID 0.3; GLOB 4.4; A/G cp 0.8. 02/06 18:22 Order name: Creatine Phosphokinase; Complete Time: 18:23 EDMS 02/06 18:24 Interpretation: CPK 9942. 02/06 18:22 Order name: Troponin High Sensitivity; Complete Time: 18:23 EDMS 02/06 18:24 Interpretation: Abnormal: Troponin HS 114.5. 02/06 18:22 Order name: NT PRO-BNP; Complete Time: 18:23 EDMS 02/06 18:24 Interpretation: Abnormal: NT PRO-BNP 4132. 02/06 18:22 Order name: Magnesium; Complete Time: 18:23 EDIN 02/06 20:33 Order name: Manual Differential; Complete Time: 05:16 EDMS 02/07 00:10 Order name: Troponin High Sensitivity; Complete Time: 05:16 EDMS 02/07 03:01 Order name: CBC with Automated Diff; Complete Time: 05:16 EDMS 02/07 03:02 Order name: Protime (+INR); Complete Time: 05:16 EDMS 02/06 15:44 Order name: XRAY Chest (1 view) 02/06 15:44 Order name: EKG; Complete Time: 15:46 02/06 15:44 Order name: Cardiac monitoring; Complete Time: 16:04 02/06 15:44 Order name: EKG - Nurse/Tech; Complete Time: 16:04 02/06 15:44 Order name: IV Saline Lock; Complete Time: 16:04 02/06 15:44 Order name: Labs collected and sent; Complete Time: 17:30 02/06 15:44 Order name: O2 Per Protocol; Complete Time: 16:04 02/06 15:44 Order name: O2 Sat Monitoring; Complete Time: 16:04 02/06 15:44 Order name: Fink; Complete Time: 17:30 02/06 15:44 Order name: Urine Dipstick-Ancillary (obtain specimen); Complete Time: 17:30 02/06 15:52 Order name: CT Traumagram (Head C Spine CAP wo con) 02/06 16:49 Order name: CT; Complete Time: 16:53 EDMS 02/06 16:58 Interpretation: Report reviewed. 02/06 18:32 Order name: US Abdomen Limited: gallbladder 02/06 18:56 Order name: RAD; Complete Time: 19:02 EDMS 02/06 20:17 Order name: US; Complete Time: 05:16 EDMS 02/07 03:59 Order name: Comprehensive Metabolic Panel; Complete Time: 05:16 EDMS 02/07 03:59 Order name: Creatine Phosphokinase; Complete Time: 05:16 EDMS 02/07 03:59 Order name: Troponin High Sensitivity; Complete Time: 05:16 EDMS 02/07 03:59 Order name: Lipid Profile; Complete Time: 05:16 EDMS 02/07 03:59 Order name: T4 Free; Complete Time: 05:16 EDMS 02/07 03:59 Order name: Magnesium; Complete Time: 05:16 EDMS 02/07 03:59 Order name: Thyroid Stimulating Hormone; Complete Time: 05:16 EDMS EC:10 Rate is 93 beats/min. Rhythm is irregular. QRS interval is normal. QT interval is cp normal. Interpreted by me. Reviewed by me. Administered Medications: 19:12 Drug: NS 0.9% 500 ml Route: IV; Rate: bolus; Site: left antecubital; kc6 02/07 00:42 Follow up: Response: No adverse reaction; IV Status: Completed infusion; IV Intake: lg3 500ml 02/06 19:12 Drug: Cefepime 1 grams Route: IVPB; Rate: 200 ml/hr; Infused Over: 30 mins; Site: left kc antecubital; 02/07 00:41 Follow up: Response: No adverse reaction; IV Status: Completed infusion; IV Intake: lg3 100ml 02/06 19:12 Drug: Thiamine 100 mg Route: IV; Rate: calculated rate; Site: left antecubital; 6 02/07 00:42 Follow up: Response: No adverse reaction; IV Status: Completed infusion lg3 02/06 19:12 Drug: foLIC Acid 1 mg Route: IVPB; Site: left antecubital; kc6 02/07 00:42 Follow up: Response: No adverse reaction; IV Status: Completed infusion lg3 02/06 19:27 Drug: Aspirin Suppository 300 mg Route: MS; 3 02/07 00:41 Follow up: Response: No adverse reaction lg3 Disposition: 22:48 Co-signature as Attending Physician, Estrada Wiggins MD I agree with the assessment and bran plan of care. 22:49 Co-signature as Attending Physician, Estrada Wiggins MD I agree with the assessment and bran plan of care. Disposition Summary: 02/06/22 18:41 Hospitalization Ordered Hospitalization Status: Inpatient Admission cp Provider: Pranav Greenberg cp Condition: Stable cp Problem: new cp Symptoms: have improved cp Bed/Room Type: Standard cp Location: Telemetry/MedSurg (Inpatient)(02/07/22 10:06) bd Room Assignment: 206(02/07/22 10:06) bd Diagnosis - Rhabdomyolysis cp - Weakness cp - Fall on same level from slipping, tripping and stumbling with subsequent striking cp against object - Elevated white blood cell count cp Forms: - Medication Reconciliation Form cp - SBAR form cp Critical care time excluding procedures: 02/06 22:00 Critical care time: Bedside Care: 5 minutes, Consultation: 25 minutes, Family cp Intervention: 7 minutes. Total time: 37 minutes Signatures: Dispatcher [employer] Debra Krause Martha RN Estrada Wang MD MD cha Attema, Lee, FLEET COORDINATOR-C FLEET COORDINATOR-Cla1 Estrada Mcrae PA PA cp Esequiel Richard RN RN Laura Billy RN RN lg3 Dayna Batista RN RN kc6 Corrections: (The following items were deleted from the chart) 15:43 15:42 Home Meds: Unable to obtain; jd3 jd3 15:43 15:42 PMHx: Unable to Obtain; jd3 jd3 16:33 16:33 This 89 yrs old Male presents to ER via EMS with complaints of Fall. cp cp 19:59 18:41 Telemetry/MedSurg (Inpatient) cp mw 19:59 18:41 cp mw 02/07 10:06 02/06 19:59 [facility] ER HOLD mw bd 02/07 10:02/06 19:59 ERHOLD- mw bd
[2022-02-06] MEDS ORDERED: NA CHLORIDE 0.9% 500 ML ONE (18:49)
[2022-02-06] MEDS ORDERED: THIAMINE 200 MG/2 ML INJ ONE (18:51)
[2022-02-06] MEDS ORDERED: NA CHLORIDE 0.9% 100 ML IV ONE (18:52)
[2022-02-06] MEDS ORDERED: FOLIC ACID 5 MG/ML VIAL ONE (18:54)
[2022-02-06] MEDS ORDERED: CEFEPIME 1 GM/VIAL ONE (18:55)
--- NOTE | 2022-02-06 18:56 | RAD REPORT ---
EXAM DESCRIPTION: RAD - Chest Single View - 02/06/2022 6:09 pm CLINICAL HISTORY: fall, loss of consciousness COMPARISON: No remote chest film TECHNIQUE: AP portable chest image was obtained 02/06/2022 6:09 pm . FINDINGS: Lung volumes are low. No pulmonary edema or acute lung parenchymal process. Shallow inspir ation accentuates basilar lung markings. Heart and vasculature are normal. No measurable pleural effu shell and no pneumothorax. No acute bony abnormality seen. No acute aortic findings suspected. IMPRESSION: No acute cardiopulmonary process.
--- NOTE | 2022-02-06 20:16 | RAD REPORT ---
EXAM DESCRIPTION: US - Abdomen Exam Limited - 02/06/2022 7:37 pm CLINICAL HISTORY: elevated liver enzymes COMPARISON: No comparisonsNo comparisons FINDINGS: No gallstones, sludge or other abnormalities within the gallbladder lumen. There is no wal l thickening or pericholecystic fluid. No common duct stone or biliary tree dilatation identified. Exam was limited patient immobility. IMPRESSION: No gallbladder or biliary tree abnormality identified.
[2022-02-06 20:32] LABS: Blood Morphology Comment NOT SEEN (NOT SEEN); Platelet Estimate ADEQ
--- NOTE | 2022-02-06 22:05 | P.HP ---
Certification for Inpatient Patient admitted to: Inpatient With expected LOS: >2 Midnights Patient will require the following post-hospital care: None Practitioner: I am a practitioner with admitting privileges, knowledge of patient current condition, hospital course, and medical plan of care. Services: Services provided to patient in accordance with Admission requirements found in Title 42 Section 412.3 of the Code of Federal Regulations <Geovanni Lane - Last Filed: 02/06/22 21:58> Patient History Date of Service: 02/06/22 Reason for admission: Rhabdomyolysis History of Present Illness: 89-year-old male with history of hypertension, BPH, hyperlipidemia presents to the emergency department after being found down at his house for unknown amount of time. Patient lives at home alone, his son came to check on him today and found him on the ground in his attic. Son reports that he has meals delivered daily and the meals were left outside from Saturday so he believes his father has likely been in the attic since then. Patient does have a history of dementia, has had similar episodes in the past. He was evaluated in the emergency department his labs were significant for leukocytosis white blood cell count 24.8 sodium of 146 chloride 116 creatinine 1.52 GFR 40 4T bili 1.1T bili 0.3 AST 316 ALT 122 CPK 9942 high-sensitivity troponin elevated as well 114.5 BNP 4132 urinalysis negative for UTI chest x-ray negative for any acute findings CT head/C-spine/chest/abdomen/pelvis was negative for hemorrhage, edema or acute intracranial findings. Ventriculomegaly is present out of proportion to volume loss correlation is needed with any history of normal pressure hydrocephalus. No other acute findings were noted. Abdominal ultrasound was performed given elevated LFTs no acute findings were noted. - Past Medical/Surgical History -: Hypertension -: Hyperlipidemia -: BPH -: None Psychosocial/ Personal History: Patient lives at homealone - Family History Family History: Reviewed- Non-Contributory - Social History Smoking Status: Never smoker Alcohol use: No CD- Drugs: No Caffeine use: Yes Place of Residence: Home <Geovanni Lane - Last Filed: 02/06/22 21:58> Date of Service: 02/07/22 <Pranav Greenberg - Last Filed: 02/07/22 13:30> Review of Systems is unable to be obtained <Geovanni Lane - Last Filed: 02/06/22 21:58> Physical Examination - Physical Exam General: Alert, In no apparent distress, Oriented x1 HEENT: Atraumatic, PERRLA, Mucous membr. moist/pink, EOMI, Sclerae nonicteric Neck: Supple, 2+ carotid pulse no bruit, No LAD, Without JVD or thyroid abnormality Respiratory: Clear to auscultation bilaterally, Normal air movement Cardiovascular: No edema, Regular rate/rhythm, Normal S1 S2 Capillary refill: <2 Seconds Gastrointestinal: Normal bowel sounds, No tenderness Musculoskeletal: No tenderness Integumentary: No rashes Neurological: Normal speech, Normal tone, Normal affect - Studies Laboratory Data (last 24 hrs) 02/06/22 17:07: PT 11.6, INR 1.05 02/06/22 17:07: WBC 24.80 H*, Hgb 15.0, Hct 44.8, Plt Count 247 02/06/22 17:07: Sodium 146 H, Potassium 4.1, BUN 41 H, Creatinine 1.52 H, Glucose 141 H, Magnesium 2.2, Total Bilirubin 1.1 H, AST 316 H*, ALT 122 H, Alkaline Phosphatase [address] <Geovanni [address] - Last Filed: 02/06/22 21:58> - Studies Laboratory Data (last 24 hrs) 02/06/22 17:07: PT 11.6, INR 1.05 02/06/22 17:07: WBC 24.80 H*, Hgb 15.0, Hct 44.8, Plt Count 247 02/06/22 17:07: Sodium 146 H, Potassium 4.1, BUN 41 H, Creatinine 1.52 H, Glucose 141 H, Magnesium 2.2, Total Bilirubin 1.1 H, AST 316 H*, ALT 122 H, Alkaline Phosphatase 99 <Pranav Greenberg - Last Filed: 02/07/22 13:30> Assessment and Plan - Plan Assessment: Rhabdomyolysis NSTEMI Elevated LFTs likely secondary to rhabdomyolysis Leukocytosis Ventriculomegaly on CT Plan: Rhabdomyolysis: Continue aggressive IV fluids, patient with mild hypernatremia/hyperchloremia. Continue D5W, nephrology consult in place for assistance with management of rhabdomyolysis. Patient was laying on floor and attic for approximately 2 days per family, has had similar episode in the past. Patient likely benefit with skilled placement/rehab at discharge. Patient's son Vipin is [facility] [phone]. Trend chemistry/LFTs. While patient evaluated by physical therapy. Uses a walker at home typically he is oriented x2-3 does have underlying dementia. NSTEMI: Patient given aspirin in the emergency department, EKG without STEMI criteria present suspect demand ischemia related to rhabdomyolysis/dehydration. We will trend troponins, consult cardiology and obtain echocardiogram. If there are significant elevations in troponin will initiate heparin drip. Appreciate further input from cardiology. Elevated LFTs likely secondary to rhabdomyolysis: Continue IV fluids, monitor LFTs daily. CT/ultrasound negative for biliary/gallbladder pathologies. Leukocytosis: Suspect reactive in nature. Rocephin given to cover possible infectious process, negative for UTI or other obvious sources of infection. Monitor CBC daily. Ventriculomegaly on CT: Neurology consulted, case discussed recommendation for physical therapy evaluation to establish baseline level of ambulatory ability followed by possible lumbar puncture with fluoroscopy. Appreciate further input from neurology. DVT PPX: Heparin Code status: Full Discharge Plan: Home Plan to discharge in: Greater than 2 days - Advance Directives Does patient have a Living Will: No Does patient have a Durable POA for Healthcare: No - Code Status/Comfort Care Code Status Assessed: Yes (DNR) Critical Care: No Time Spent Managing Pts Care (In Minutes): [address] <[address] - Last Filed: 02/06/22 21:58> Physician Review: Patient Assessed, Agree with Above Assessment and Plan <Pranav Greenberg - Last Filed: 02/07/22 13:30>
[2022-02-06] MEDS ORDERED: ONDANSETRON 4 MG/2 ML VIAL IV PRN (23:13)
[2022-02-06] MEDS: D5W 1,000 ML IV SCH (23:13)
[2022-02-06] MEDS: HEPARIN 5000 UNIT/ML 1 ML VIAL SQ SCH (23:13)
[2022-02-07 00:10] VITALS: BMI 21.7
[2022-02-07 02:55] LABS: Absolute Lymphocytes (CBC) 1.6 K/uL (0.7-4.9); Hematocrit 40.6 % (39.6-49.0); Lymphocytes % 8.2 % (15.3-44.8); MCV 89.4 fL (80-100); MPV 8.2 fL (7.6-11.3); RBC Red Blood Cell Count 4.54 M/uL (4.33-5.43)
[2022-02-07 03:02] LABS: Protime INR 1.09
[2022-02-07 03:54] LABS: Albumin 2.8 g/dL (3.4-5.0); Bilirubin Total 0.8 mg/dL (0.2-1.0); Magnesium 2.1 mg/dL (1.8-2.4); Protein, Total 6.8 g/dL (6.4-8.2); Thyroid Stimulating Hormone 2.13 uIU/mL (0.360-3.740)
[2022-02-07 03:58] LABS: Troponin High Sensitivity 88.7 pg/mL (<58.9)
--- NOTE | 2022-02-07 08:58 | CON ---
Reason For Consultation: Rhabdomyolysis, altered mental status, and fall. History Of Present Illness: Mr. Landry is 89. He is a do not resuscitate. Came in after falling, alt ered mental status, was found to have elevated CPK of 9000, BNP is 4132, troponin is 114. Procalcito kaylee is 2.12. His AST was 310. White count was 24,000. Creatinine 1.4. Normal chest x-ray. Normal abdominal ultrasound. Normal CTs of the chest, abdomen, and pelvis and head and neck. He is a do n ot resuscitate. No cardiac complaint. Past Medical History: Unremarkable. Allergies: NONE. Review of Systems: Negative. Social History: Negative. Family History: Negative. Medications: Listed by Dr. Greenberg. Physical Examination: Vital Signs: Stable, afebrile. HEENT: Negative. Neck: Supple with no bruit. Chest: Clear. Cardiac: Revealed aortic sclerosis. Regular rhythm and rate. Abdomen: Benign. Extremities: Revealed no clubbing, cyanosis, or edema. Diagnostic Data: As stated earlier. Impression And Plan: 1.Elevated white count, on antibiotics. He is on heparin as well subcu for deep vein thrombosis pro phylaxis. 2.Elevated CPK, troponin, BNP. Echocardiogram is pending. 3.Renal insufficiency. 4.Elevated liver function enzymes with negative abdominal ultrasound and CT scan. I would hydrate h im, get an echocardiogram. Continue present regimen. We will continue to follow. His elevated trop onin is definitely secondary to rhabdomyolysis and demand ischemia. This is not an acute coronary sy ndrome. NB/MODL Voice ID: [id number] Report ID: [id number]
[2022-02-07] MEDS: CEFTRIAXONE 1,000 MG in NA CHLORIDE 0.9% 50 ML IVPB SCH (09:00)
[2022-02-07] MEDS: HEPARIN 5000 UNIT/ML 1 ML VIAL SQ SCH ×2 (09:00→21:48)
[2022-02-07] MEDS: D5W 1,000 ML IV SCH (09:13)
[2022-02-07] MEDS: NACHLORIDE 0.45% 1,000 ML IV SCH ×2 (10:00→21:48)
[2022-02-07] MEDS ORDERED: NACHLORIDE 0.45% 1,000 ML IV ONE (10:18)
[2022-02-07] MEDS ORDERED: HEPARIN 5000 UNIT/ML 1 ML VIAL ONE (10:18)
[2022-02-07] MEDS ORDERED: CEFTRIAXONE 1000 MG/VIAL ONE (10:18)
[2022-02-07] MEDS ORDERED: NA CHLORIDE 0.9% 50 ML IV ONE (10:18)
--- NOTE | 2022-02-07 11:46 | EKG ---
Test Date: 2022-02-06 Test Time: 15:58:27 Rubber Engraver: NATASHA MEASUREMENT RESULTS: Intervals: Rate: 93 [place]: QRSD: 80 QT: 392 QTc: 487 [place]: P: [place]: QRS: 4 T: 100 INTERPRETIVE STATEMENTS: Atrial fibrillation Septal infarct, age undetermined Abnormal ECG No previous ECG available for comparison Electronically Signed On 02-07-22 11:45:11 CDT by Bartolome Shah
--- NOTE | 2022-02-07 13:11 | ECHO ---
HEIGHT: 6 ft 0 in WEIGHT: 160 lb 0 oz DATE OF STUDY: 02/07/[address]: Geovanni Lane NP 2-DIMENSIONAL: YES M.MODE: YES DOPPLER: YES COLOR FLOW: YES TDS: NO PORTABLE: YES DEFINITY: NO BUBBLE STUDY: NO DIAGNOSIS: ELEVATED TROPONIN CARDIAC HISTORY: CATHERIZATION: SURGERY: PROSTHETIC VALVE: PACEMAKER: MEASUREMENTS (cm) DIASTOLIC (NORMALS) SYSTOLIC (NORMALS) IVSd 1.0 (0.6-1.2) LA Diam 2.8 (1.9-4.0) LVEF 58% LVIDd 3.6 (3.5-5.7) LVIDs 2.5 (2.0-3.5) %FS 30% LVPWd 1.0 (0.6-1.2) Ao Diam 3.3 (2.0-3.7) 2 DIMENSIONAL ASSESSMENT: RIGHT ATRIUM: NORMAL LEFT ATRIUM: NORMAL RIGHT VENTRICLE: NORMAL LEFT VENTRICLE: NORMAL TRICUSPID VALVE: MILD TRICUSPID REGURGITATION MITRAL VALVE: THICKENED WITH MILD MITRAL REGURGITATION PULMONIC VALVE: MILD PULMONIC INSUFFICIENCY AORTIC VALVE: MILD AORTIC INSUFFICIENCY PERICARDIAL EFFUSION: SMALL AORTIC ROOT: NORMAL LEFT VENTRICULAR WALL MOTION: NORMAL. DOPPLER/COLOR FLOW: SEE BELOW. COMMENTS: NORMAL LEFT VENTRICULAR EJECTION FRACTION 55-60%. MILD TRICUSPID REGURGITATION, MILD PULMONIC INSUFFICIENCY. 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 MILD AORTIC INSUFFICIENCY. TRACE PERICARDIAL EFFUSION. TECHNOLOGIST: SANDIP MARLEY
--- NOTE | 2022-02-07 13:37 | P.PN ---
Subjective Date of Service: 02/07/22 Chief Complaint: Rhabdomyolysis Subjective: No new changes No acute events since admission. He is alert and oriented x 1 to person this morning. His son, who is at bedside, states that his last known normal was on 02/02/2022. Review of Systems is unable to be obtained Physical Examination - Vital Signs Temperature: 97.6 F Blood Pressure: 113/81 Pulse: 91 Respirations: 14 Pulse Ox (%): 99 - Physical Exam General: Alert, In no apparent distress, Oriented x1 (self) HEENT: Atraumatic, PERRLA, Mucous membr. moist/pink, EOMI, Sclerae nonicteric Neck: Supple, JVD not distended Respiratory: Clear to auscultation bilaterally, Normal air movement Cardiovascular: No edema, Regular rate/rhythm, Normal S1 S2 Capillary refill: >2 Seconds Gastrointestinal: Normal bowel sounds, Soft and benign, Non-distended, No tenderness, No rebound, No guarding Musculoskeletal: No clubbing Integumentary: No rashes Neurological: Other (Disoriented) - Studies Laboratory Data (last 24 hrs) 02/06/22 17:07: PT 11.6, INR 1.05 02/06/22 17:07: WBC 24.80 H*, Hgb 15.0, Hct 44.8, Plt Count 247 02/06/22 17:07: Sodium 146 H, Potassium 4.1, BUN 41 H, Creatinine 1.52 H, Glucose 141 H, Magnesium 2.2, Total Bilirubin 1.1 H, AST 316 H*, ALT 122 H, Alkaline Phosphatase 99 Assessment And Plan - Plan # Rhabdomyolysis # Acute Toxic Metabolic Encephalopathy secondary to Severe Dehydration and Rhabdomyolysis # Acute Kidney Injury secondary to Dehydration and Rhabdomyolysis # Elevated LFTs secondary to Rhabdomyolysis # Suspect Reactive Leukocytosis secondary to above - no current evidence of infection # Microscopic Hematuria due to above - Nephrology consulted and spoke with Dr. Kellogg - recommendations appreciated - Continue aggressive IV hydration - CK trend: 9942 -> 5959 - CXR = "no acute cardiopulmonary process" - Abdominal US = "no gallbladder or biliary tree abnormality identified" - Creatinine trend: 1.52 -> 1.42 (baseline unknown) - Urinalysis = hematuria, proteinuria - Monitor creatinine and urine output - If worsening, obtain renal ultrasound - Renally dose medications - To further evaluate for CVA, ordered MRI brain, MRA head/neck, TTE, and PT consult - If positive, will start atorvastatin, folic acid, clopdiogrel # Type II Non-ST Segment Elevation Myocardial Infarction (Demand Ischemia) due to above - Cardiology consulted - recommendations appreciated - EKG without STEMI criteria - Troponin trend: 114.5 -> 95.5 -> 88.7 - TTE ordered - Started aspirin # Ventriculomegaly with Altered Mentation CT head/c-spine/chest/abdomen/pelvis revealed, "no hemorrhage, edema or acute intracranial finding. Ventriculomegaly is present out of proportion to volume loss. Correlation is needed with any history of normal pressure hydrocephalus. Cervical spine degenerative change without acute finding. Central canal detail is inherently limited. Minimal pleural fluid and atelectasis changes along the posterior aspect of each hemithorax. No acute traumatic injury to the chest. No acute abdominal or pelvic finding." - This is of unclear clinical significance - Consulted Neurology - recommendations appreciated Pranav Greenberg M.D.
--- NOTE | 2022-02-07 16:10 | P.CNS ---
Date of Consult: 02/07/22 Reason for Consult: oliverio WYMAN Requesting Physician: Geovanni Lane Chief Complaint: Rhabdomyolysis History of Present Illness: Pt is a 89-year-old male with history of hypertension on meds including ARB agent, BPH on dual therapy with Finasteride and Tamsulosin, a hx of hyperlipidemia presented to the emergency department after being found down at his house for unknown amount of time. Patient lives at home alone, his family checked on pt as his meals that are typically delivered were left outside since possibly Mon Pt had a CT w/u that was negative for any trauma or fractures. He had a number of laboratory abnormalities including rhabdo, renal insufficiency, other. Bermudez was placed in the ER, he has been on IVF. Allergies No Known Allergies Allergy (Unverified 02/07/22 14:06) Home Medications: Amlodipine [Norvasc*] 1 tab PO DAILY 08/30/21 Losartan Potassium 100 mg PO DAILY 08/30/21 Metformin ER [Glucophage ER*] 1 tab PO SEECOM 08/30/21 Tamsulosin [Flomax*] 1 cap PO DAILY 08/30/21 carvediloL [Carvedilol] 1 tab PO BID 08/30/21 Amox/Clavulanate [Augmentin 875-125 Tab] 875 mg PO BID 7 Days #14 tab 09/05/21 Apixaban [Eliquis] 2.5 mg PO BID 30 Days #60 tablet 09/05/21 Amlodipine Besylate 5 mg PO DAILY 02/07/22 Finasteride 5 mg PO T,TH,S 02/07/22 Losartan Potassium 12.5 mg PO DAILY 02/07/22 Losartan Potassium 100 mg PO DAILY 02/07/22 Rosuvastatin Calcium 5 mg PO T,TH,S 02/07/22 Tamsulosin HCl 0.4 mg PO DAILY 02/07/22 - Past Medical/Surgical History Diabetic: Yes -: Hypertension -: Hyperlipidemia -: BPH -: None Psychosocial/ Personal History: Patient lives at homealone - Family History Brother Medical History: Blood disorders Mother Medical History: Cancer - Social History Smoking Status: Unknown if ever smoked Alcohol use: No CD- Drugs: No Caffeine use: Yes Place of Residence: Home Review of Systems General: Weakness Eyes: Unremarkable ENT: Unremarkable Respiratory: Unremarkable Cardiovascular: Unremarkable Gastrointestinal: Unremarkable Genitourinary: Other (Bermudez present) Musculoskeletal: As per HPI Integumentary: Unremarkable Neurological: Other (Reports of some underlying dementia) Physical Examination Temp Pulse Resp BP Pulse Ox 97.6 F 91 H 14 113/81 99 02/07/22 13:48 02/07/22 13:48 02/07/22 13:48 02/07/22 13:48 02/07/22 13:48 General: Alert, In no apparent distress, Cooperative HEENT: Atraumatic, Normocephalic, EOMI Respiratory: Clear to auscultation bilaterally, Normal air movement Cardiovascular: No edema, Regular rate/rhythm, Normal S1 S2 Gastrointestinal: Soft and benign, Non-distended Musculoskeletal: No swelling, No contractures Integumentary: No rashes, No breakdown Neurological: Normal speech, Normal tone, Normal affect Urinary: Bermudez catheter Laboratory Data (last 24 hrs) 02/06/22 17:07: PT 11.6, INR 1.05 02/06/22 17:07: WBC 24.80 H*, Hgb 15.0, Hct 44.8, Plt Count 247 02/06/22 17:07: Sodium 146 H, Potassium 4.1, BUN 41 H, Creatinine 1.52 H, Glucose 141 H, Magnesium 2.2, Total Bilirubin 1.1 H, AST 316 H*, ALT 122 H, Alkaline Phosphatase 99 Conclusions/Impression: 1. Abnormal results of kidney function studies 2. Stage 1 GARO 3. Acute rhabdomyolysis 4. Mild hypernatrema 5. BPH with LUTs -CPK level was close to 10,000 on admission, repeat lower, cont to trend until < 2000. -Pt was put on D5W IVF initially since Na > 145, switched to 1/2 NS in the setting of rhabdo. Could have considered urinary alkalanization but since GARO was mild, will cont to monitor currently. -Monitor UOP closely, UA on admission was concentrated, 3+ blood reported 2nd to myoglobinuria but there were also some RBCs present presumably due to BPH and/or bermudez. -Cont to hold ARB. -Avoid IV iodine contrast imaging -No NSAIDs Thank you for this referral, Roberth Kellogg MD, JOHNNIE
--- NOTE | 2022-02-07 21:56 | RAD REPORT ---
EXAM DESCRIPTION: MRI - Brain W/Wo Cont - 02/07/2022 9:42 pm CLINICAL HISTORY: CVA COMPARISON: head CT August 2021 TECHNIQUE: Axial, sagittal, and coronal magnetic images of the brain were obtained. 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 Prominent cerebral atrophy. Prominence of the ventricles likely related to cerebral. Diffusion-weighted/ ADC mapping sequences do not demonstrate evidence of an acute infarction. No abnormal enhancement within the brain is seen. An extra-axial fluid collection is not noted. Fluid within the sinuses/mastoids is not seen IMPRESSION: No acute intracranial abnormality displayed
--- NOTE | 2022-02-07 21:58 | RAD REPORT ---
EXAM DESCRIPTION: MRI - MRA Neck W/Wo Cont - 02/07/2022 9:41 pm CLINICAL HISTORY: CVA mild plaque is present within COMPARISON: None. TECHNIQUE: Magnetic resonance angiogram of the neck was performed. 16 cc MultiHance was administered intravenously. 3D MIPS reconstruction performed FINDINGS: Mild plaque is present within the internal carotid arteries bilaterally Common and external carotid arteries appear unremarkable The distal right vertebral artery is hypoplastic. Mild plaque within the vertebral arteries. No dissection seen IMPRESSION: Mild plaque internal carotid arteries NASCET criteria used. Mild 0-49% stenosis Moderate 50-69% stenosis Severe 70-99% stenosis
--- NOTE | 2022-02-07 22:00 | RAD REPORT ---
EXAM DESCRIPTION: MRI - MRA Head Wo Cont - 02/07/2022 9:42 pm CLINICAL HISTORY: CVA COMPARISON: None. TECHNIQUE: Magnetic resonance angiogram was performed. 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 Remainder of the anterior cerebral, middle cerebral and posterior cerebral arteries unremarkable No significant stenosis seen An aneurysm is not displayed. IMPRESSION: No acute abnormality is displayed
[2022-02-08 06:11] LABS: Absolute Lymphocytes (CBC) 2.3 K/uL (0.7-4.9); Lymphocytes % 16.8 % (15.3-44.8); MCV 88.7 fL (80-100); MPV 8.2 fL (7.6-11.3); RBC Red Blood Cell Count 3.83 M/uL (4.33-5.43)
[2022-02-08] MEDS: NACHLORIDE 0.45% 1,000 ML IV SCH ×3 (06:42→20:41)
[2022-02-08 06:51] LABS: Albumin 2.2 g/dL (3.4-5.0); Bilirubin Total 0.6 mg/dL (0.2-1.0); Magnesium 1.9 mg/dL (1.8-2.4); Potassium 3.5 mmol/L (3.5-5.1); Protein, Total 5.7 g/dL (6.4-8.2)
[2022-02-08 08:15] LABS: Protime INR 0.99
[2022-02-08] MEDS: CEFTRIAXONE 1,000 MG in NA CHLORIDE 0.9% 50 ML IVPB SCH (09:59)
[2022-02-08] MEDS: HEPARIN 5000 UNIT/ML 1 ML VIAL SQ SCH ×2 (09:59→20:42)
[2022-02-08] MEDS: ASPIRIN 81 MG CHEWABLE TABLET PO SCH (09:59)
--- NOTE | 2022-02-08 12:54 | P.PN ---
Nephrology note: (S) Pt denies any significant soreness, but reports legs felt weak when he was OOB earlier. General: Alert, In no apparent distress, Cooperative HEENT: Atraumatic, Normocephalic, EOMI Respiratory: Clear to auscultation bilaterally, Normal air movement Cardiovascular: No edema, Regular rate/rhythm, Normal S1 S2 Gastrointestinal: Soft and benign, Non-distended Musculoskeletal: No swelling, No contractures Integumentary: No rashes, No breakdown noted Neurological: Normal speech, Normal tone, Normal affect Urinary: Bermudez catheter Laboratory Data (last 24 hrs) Reviewed in the EMR Conclusions/Impression: 1. Abnormal results of kidney function studies 2. Stage 1 GARO 3. Acute rhabdomyolysis 4. Mild hypernatrema 5. BPH with LUTs -Cr level improving -CPK level was close to 10,000 on admission, repeat trending downwards nicely -Pt was put on D5W IVF initially since Na > 145, switched to 1/2 NS in the setting of rhabdo. Cont for now. -Monitor UOP closely, UA on admission was concentrated, 3+ blood reported 2nd to myoglobinuria but there were also some RBCs present presumably due to BPH and/or bermudez. -Cont to hold ARB and other scheduled anti-hypertensives at this time -No NSAIDs Roberth Kellogg MD, JOHNNIE
--- NOTE | 2022-02-08 17:20 | P.PN ---
Subjective Date of Service: 02/08/22 Chief Complaint: Rhabdomyolysis No acute events overnight. He is alert and oriented x [address] this morning. He denies any pain, but endorses generalized weakness. His CK and Cr are trending downward. CM is working on SNF placement. Review of Systems 10-point ROS is otherwise unremarkable General: Weakness (generalized) Physical Examination - Vital Signs Temperature: 97.6 F Blood Pressure: 119/63 Pulse: 84 Respirations: 18 Pulse Ox (%): 96 Assessment And Plan - Plan - Physical Exam General: Alert, In no apparent distress, Oriented x2 (person, place) HEENT: Atraumatic, PERRLA, Mucous membr. moist/pink, EOMI, Sclerae nonicteric Neck: Supple, JVD not distended Respiratory: Clear to auscultation bilaterally, Normal air movement Cardiovascular: No edema, Regular rate/rhythm, Normal S1 S2 Capillary refill: >2 Seconds Gastrointestinal: Normal bowel sounds, Soft and benign, Non-distended, No tenderness, No rebound, No guarding Musculoskeletal: No clubbing Integumentary: No rashes Neurological: A&O x [address] # Rhabdomyolysis # Acute Toxic Metabolic Encephalopathy secondary to Severe Dehydration and R habdomyolysis # Acute Kidney Injury secondary to Dehydration and Rhabdomyolysis # Elevated LFTs secondary to Rhabdomyolysis # Suspect Reactive Leukocytosis secondary to above - no current evidence of infection # Microscopic Hematuria due to above - Nephrology consulted and spoke with Dr. Kellogg - recommendations appreciated - Continue aggressive IV hydration - CK trend: 9942 -> 5959 -> 2578 - CXR = "no acute cardiopulmonary process" - Abdominal US = "no gallbladder or biliary tree abnormality identified" - Creatinine trend: 1.52 -> 1.42 -> 1.24 (baseline unknown) - Urinalysis = hematuria, proteinuria - Monitor creatinine and urine output - If worsening, obtain renal ultrasound - Renally dose medications -MRI brain, MRA head/neckwithout evidence of acute CVA - CM assisting with SNF placement # Type II Non-ST Segment Elevation Myocardial Infarction (Demand Ischemia) due to above - Cardiology consulted - recommendations appreciated - EKG without STEMI criteria - Troponin trend: 114.5 -> 95.5 -> 88.7 - TTE = "NORMAL LEFT VENTRICULAR EJECTION FRACTION 55-60%. MILD TRICUSPID REGURGITATION, MILD PULMONIC INSUFFICIENCY. 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 MILD AORTIC INSUFFICIENCY. TRACE PERICARDIAL EFFUSION " - Started aspirin # Ventriculomegaly with Altered Mentation CT head/c-spine/chest/abdomen/pelvis revealed, "no hemorrhage, edema or acute intracranial finding. Ventriculomegaly is present out of proportion to volume loss. Correlation is needed with any history of normal pressure hydrocephalus. Cervical spine degenerative change without acute finding. Central canal detail is inherently limited. Minimal pleural fluid and atelectasis changes along the posterior aspect of each hemithorax. No acute traumatic injury to the chest. No acute abdominal or pelvic finding." - This is of unclear clinical significance - Consulted Neurology - recommendations appreciated Pranav Greenberg M.D.
[2022-02-08] MEDS: ENSURE ENLIVE 237 ML CAN PO SCH (20:42)
[2022-02-09 05:56] LABS: Absolute Lymphocytes (CBC) 2.2 K/uL (0.7-4.9); Hematocrit 32.4 % (39.6-49.0); Lymphocytes % 19.9 % (15.3-44.8); MPV 8.2 fL (7.6-11.3); RBC Red Blood Cell Count 3.64 M/uL (4.33-5.43)
[2022-02-09 06:40] LABS: Albumin 2.1 g/dL (3.4-5.0); Bilirubin Total 0.5 mg/dL (0.2-1.0); Potassium 3.7 mmol/L (3.5-5.1); Protein, Total 5.6 g/dL (6.4-8.2)
[2022-02-09] MEDS ORDERED: CEFTRIAXONE 1000 MG/VIAL ONE (07:39)
[2022-02-09] MEDS: NACHLORIDE 0.45% 1,000 ML IV SCH (08:12)
[2022-02-09] MEDS: ASPIRIN 81 MG CHEWABLE TABLET PO SCH (08:13)
[2022-02-09] MEDS: HEPARIN 5000 UNIT/ML 1 ML VIAL SQ SCH ×2 (08:14→19:59)
[2022-02-09] MEDS: CEFTRIAXONE 1,000 MG in NA CHLORIDE 0.9% 50 ML IVPB SCH (08:14)
[2022-02-09] MEDS: ENSURE ENLIVE 237 ML CAN PO SCH ×2 (08:15→20:01)
--- NOTE | 2022-02-09 10:47 | P.PN ---
Nephrology note: (S) Pt denies any significant muscle soreness, has been OOB to ambulate short distance. Remains on IVF General: Alert, In no apparent distress, Cooperative HEENT: Atraumatic, Normocephalic, EOMI Respiratory: Clear to auscultation bilaterally, Normal air movement Cardiovascular: No edema, Regular rate/rhythm, Normal S1 S2 Gastrointestinal: Soft and benign, Non-distended Musculoskeletal: No swelling, No contractures Integumentary: No rashes, No breakdown noted Neurological: Normal speech, Normal tone, Normal affect Urinary: Bermudez catheter Laboratory Data (last 24 hrs) Reviewed in the EMR Conclusions/Impression: 1. Abnormal results of kidney function studies 2. Stage 1 GARO 3. Acute rhabdomyolysis 4. Mild hypernatrema 5. BPH with LUTs -Cr level improved. -CPK level was close to 10,000 on admission, repeat trending downwards but this AM's level is not any lower for unclear reasons. -Pt was put on D5W IVF initially since Na > 145, switched to 1/2 NS in the setting of rhabdo, will now switch to NS IVF while CPK still > 2000 and a bit higher today. -Documented UOP acceptable, d/c bermudez once pt more ambulatory -Cont to hold ARB and other scheduled anti-hypertensives at this time -No NSAIDs Roberth Kellogg MD, JOHNNIE
[2022-02-09] MEDS: NA CHLORIDE 0.9% 1,000 ML IV SCH (12:16)
--- NOTE | 2022-02-09 17:25 | P.PN ---
Subjective Date of Service: 02/09/22 Chief Complaint: Rhabdomyolysis No acute events overnight. He is alert and oriented x [address] this morning. He denies any concerns this morning. CM is working on SNF placement. Review of Systems 10-point ROS is otherwise unremarkable General: Weakness (generalized) Physical Examination - Vital Signs Temperature: 97.3 F Blood Pressure: 113/65 Pulse: 73 Respirations: 18 Pulse Ox (%): 99 Assessment And Plan - Plan - Physical Exam General: Alert, In no apparent distress, Oriented x2 (person, place) HEENT: Atraumatic, PERRLA, Mucous membr. moist/pink, EOMI, Sclerae nonicteric Neck: Supple, JVD not distended Respiratory: Clear to auscultation bilaterally, Normal air movement Cardiovascular: No edema, Regular rate/rhythm, Normal S1 S2 Capillary refill: >2 Seconds Gastrointestinal: Normal bowel sounds, Soft and benign, Non-distended, No tenderness, No rebound, No guarding Musculoskeletal: No clubbing Integumentary: No rashes Neurological: A&O x [address] # Rhabdomyolysis # Acute Toxic Metabolic Encephalopathy secondary to Severe Dehydration and Rhabdomyolysis # Acute Kidney Injury secondary to Dehydration and Rhabdomyolysis # Elevated LFTs secondary to Rhabdomyolysis # Suspect Reactive Leukocytosis secondary to above - no current evidence of infection # Microscopic Hematuria due to above - Nephrology consulted and spoke with Dr. Kellogg - recommendations appreciated - Continue aggressive IV hydration - CK trend: 9942 -> 5959 -> 2578 -> 2661 - CXR = "no acute cardiopulmonary process" - Abdominal US = "no gallbladder or biliary tree abnormality identified" - Creatinine trend: 1.52 -> 1.42 -> 1.24 -> 1.13(baseline unknown) - Urinalysis = hematuria, proteinuria - Monitor creatinine and urine output - If worsening, obtain renal ultrasound - Renally dose medications -MRI brain, MRA head/neckwithout evidence of acute CVA - CM assisting with SNF placement # Type II Non-ST Segment Elevation Myocardial Infarction (Demand Ischemia) due to above - Cardiology consulted - recommendations appreciated - EKG without STEMI criteria - Troponin trend: 114.5 -> 95.5 -> 88.7 - TTE = "NORMAL LEFT VENTRICULAR EJECTION FRACTION 55-60%. MILD TRICUSPID REGURGITATION, MILD PULMONIC INSUFFICIENCY. 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 MILD AORTIC INSUFFICIENCY. TRACE PERICARDIAL EFFUSION " - Started aspirin # Ventriculomegaly with Altered Mentation CT head/c-spine/chest/abdomen/pelvis revealed, "no hemorrhage, edema or acute intracranial finding. Ventriculomegaly is present out of proportion to volume loss. Correlation is needed with any history of normal pressure hydrocephalus. Cervical spine degenerative change without acute finding. Central canal detail is inherently limited. Minimal pleural fluid and atelectasis changes along the posterior aspect of each hemithorax. No acute traumatic injury to the chest. No acute abdominal or pelvic finding." - This is of unclear clinical significance - Consulted Neurology - recommendations appreciated Medically cleared once accepted to SNF. Pranav Greenberg M.D.
[2022-02-10] MEDS: NA CHLORIDE 0.9% 1,000 ML IV SCH ×2 (00:07→20:56)
[2022-02-10 04:48] LABS: Potassium 3.6 mmol/L (3.5-5.1)
[2022-02-10] MEDS ORDERED: CEFTRIAXONE 1000 MG/VIAL ONE (07:07)
[2022-02-10] MEDS ORDERED: NA CHLORIDE 0.9% 50 ML ONE (07:23)
[2022-02-10] MEDS: CEFTRIAXONE 1,000 MG in NA CHLORIDE 0.9% 50 ML IVPB SCH (07:56)
[2022-02-10] MEDS: ASPIRIN 81 MG CHEWABLE TABLET PO SCH (07:56)
[2022-02-10] MEDS: HEPARIN 5000 UNIT/ML 1 ML VIAL SQ SCH ×2 (07:57→20:56)
[2022-02-10] MEDS: ENSURE ENLIVE 237 ML CAN PO SCH ×2 (07:58→21:00)
--- NOTE | 2022-02-10 10:11 | P.PN ---
Subjective Date of Service: 02/10/22 Chief Complaint: Rhabdomyolysis and renal failure Subjective: Improving (Improving no new complaints patient is weak pending placement) Review of Systems is unable to be obtained Physical Examination - Vital Signs Temperature: 97.3 F Blood Pressure: 140/64 Pulse: 73 Respirations: 18 Pulse Ox (%): 98 - Physical Exam General: Alert, Cooperative Respiratory: Clear to auscultation bilaterally Cardiovascular: Normal S1 S2, Irregular heart rate/rhythm Assessment And Plan - Current Problems (Diagnosis) (1) Rhabdomyolysis Current Visit: No Status: Acute Plan: Patient is 89 years of age admitted with rhabdomyolysis and renal failure White count is now mildly elevated renal function has improved significantly CPK has declined as well cultures are so far negative no acute changes noted on MRI of the brain seen by cardiology continue with IV fluid Qualifiers: Rhabdomyolysis type: non-traumatic Qualified Code(s): M62.82 - Rhabdomyolysis Physician Review: Patient Assessed, Agree with Above Assessment and Plan
[2022-02-11] MEDS: NA CHLORIDE 0.9% 1,000 ML IV SCH ×2 (03:00→15:51)
[2022-02-11 05:12] LABS: CKMB Creatine Kinase MB 3.1 ng/mL (1.0-3.6); Potassium 3.9 mmol/L (3.5-5.1)
[2022-02-11] MEDS ORDERED: CEFTRIAXONE 1000 MG/VIAL ONE (07:02)
[2022-02-11] MEDS: HEPARIN 5000 UNIT/ML 1 ML VIAL SQ SCH (07:32)
[2022-02-11] MEDS: ASPIRIN 81 MG CHEWABLE TABLET PO SCH (07:32)
[2022-02-11] MEDS: CEFTRIAXONE 1,000 MG in NA CHLORIDE 0.9% 50 ML IVPB SCH (07:32)
[2022-02-11] MEDS: ENSURE ENLIVE 237 ML CAN PO SCH ×2 (07:49→20:55)
--- NOTE | 2022-02-11 10:56 | P.PN ---
Subjective Date of Service: 02/11/22 Chief Complaint: Rhabdomyolysis and renal failure Subjective: Improving (Improving he is more alert responsive significant bruising in the right flank and left shoulder superficial ulceration) Review of Systems 10-point ROS is otherwise unremarkable Physical Examination - Vital Signs Temperature: 97.7 F Blood Pressure: 134/59 Pulse: 85 Respirations: 16 Pulse Ox (%): 99 - Physical Exam General: Alert, Oriented x3 Neck: Supple Respiratory: Clear to auscultation bilaterally Integumentary: Other (Patient has superficial ulceration in the right flank with some oozing and and also on the left shoulder) Assessment And Plan - Current Problems (Diagnosis) (1) Rhabdomyolysis Current Visit: No Status: Acute Plan: Patient's chemistries renal function CPK all improving his vital signs are stable currently on IV fluids seen by nephrology SCOTT Singh no evidence of sepsis patient is still very weak Zickel therapy has been consulted continue with dry dressings on the wound Qualifiers: Rhabdomyolysis type: non-traumatic Qualified Code(s): M62.82 - Rhabdomyolysis Physician Review: Patient Assessed, Agree with Above Assessment and Plan
[2022-02-12 04:36] LABS: CKMB Creatine Kinase MB 2.4 ng/mL (1.0-3.6); Potassium 3.7 mmol/L (3.5-5.1)
[2022-02-12] MEDS: NA CHLORIDE 0.9% 1,000 ML IV SCH ×2 (05:40→19:00)
--- NOTE | 2022-02-12 07:01 | CON ---
Reason For Consultation: Consultation called because of a fall. History Of Present Illness: Mr. Landry is an 89-year-old patient with hypertension, dyslipidemia, who lives alone and apparently he said was trying to fix a hole in the attic when he went up rafters and actually slipped and fell in between the rafters and was unable to extricate himself. His son who ch ecks on him regularly said the patient also gets meals delivered. When he came, meals from Saturday we re left outside the house and when the son went in and spoke eventually and helped his father, it mus t have been perhaps a day or so that he was unable to extricate himself. By the time he came to [facility], his CPK was elevated at 9942, high density troponin elevated at 114, BNP 4132, creat inine elevated to 1.52, and white blood cell count was up to 24.8. Head CT scan was negative for any acute ischemic hemorrhagic findings and he had trauma series negative for any acute findings in the chest, abdomen, and pelvis. No fractures. No bleeding. A CT scan of the head did show cerebral atr ophy with ex vacuo dilatation, although there was mention of the possibility of normal-pressure hydro cephalus. Past Medical History: As noted. Social History: Lives alone. Denies alcohol, tobacco, or IV drug use. Drinks caffeinated beverages . Family History: Noncontributory. Medications: Aspirin 81 mg daily. He did receive Rocephin in the emergency room for presumed urinar y tract infection. Heparin 5000 units every 12 hours. Ensure 237 mg twice daily. Zofran as needed. Review of Systems: The patient notes some myalgias, arthralgias, and some difficulty mobilizing, diffuse stiffness, and otherwise no recent headaches, fevers, chills. No active psychiatric issues or gastrointestinal or g enitourinary issues. Physical Examination: Vital Signs: Blood pressure 124/66, pulse 74, respiratory rate 18, temperature 97.4, oxygen saturati on 96% on room air. General: Mr. Landry is sitting in bed. He has a [employer] member at the bedside. He is eating his lunch . He does have a protective DuoDerm on the back where he was resting between the rafters for a prolo nged period. He has otherwise a slight bruising on the arms, but no obvious cranial injuries at leas t externally. Skin: General exam shows bruising of upper and lower extremities. Neurological: He is a slow to respond to person, but was appropriate in terms of his affect. Crania l nerves did not show obvious focal deficits. Motor examination, slow to respond. Mild diffuse weak ness around 4-5 upper and lower extremities. Sensory exam is stocking-glove loss light touch tempera ture. Reflexes are depressed. Coordination intact in terms of his gait, he will be ambulated with t he therapist using gait belt. Laboratory Studies: His white blood cell count is now 11.3, down from 24.8; neutrophils are down fro m 85.9 to 66. His hemoglobin was 11.0, after rehydration 15. INR 0.99. His chemistries now rehydra ana show a creatinine of 1.13, sodium chloride, bicarb are normal. Creatine kinase down to 2661 from 9900. His procalcitonin was 0.12. came in and again he was treated with intravenous ant ibiotics. LDL cholesterol 89, HDL 55. His COVID testing was negative. Assessment: Mr. Landry is an 89-year-old patient who fell on his attic and developed rhabdo from immob ilization and compression on muscles actually in the back and arm. He is recovering well. The patie nt says he will not attempt to climb back into his attic and he actually should be in a safer situati on at least until he is able to be up and mobile independently, perhaps short-term and a skilled faci lity. He did agree, he should stay away from climbing into the attics. At this point, if a disposit ion is appropriate for him to be in a facility or if someone can be at home with him at least in the short-term, perhaps 1-2 weeks, he may be discharged. He does not require further neurological followup. FELIPE/BRANDAN Voice ID: [id number] Report ID: [id number]
[2022-02-12] MEDS: ASPIRIN 81 MG CHEWABLE TABLET PO SCH (07:46)
[2022-02-12] MEDS: ENSURE ENLIVE 237 ML CAN PO SCH ×2 (07:47→20:24)
[2022-02-12] MEDS ORDERED: ENOXAPARIN 40 MG/0.4 ML SQ SCH (09:00)
[2022-02-12 12:27] VITALS: O2SAT 95
[2022-02-12 20:17] VITALS: BP 161/72; TEMP 97
--- NOTE | 2022-02-12 21:17 | P.PN ---
Date of Service: 02/12/22 Vital Signs Temp Pulse Resp BP Pulse Ox 97 F 74 18 161/72 H 96 02/12/22 20:00 02/12/22 20:00 02/12/22 20:00 02/12/22 20:00 02/12/22 20:00 Microbiology Results 02/06/22 18:13 Blood - Blood Aerobic Blood Culture - Final No growth in 5 days. 02/06/22 18:13 Blood - Blood Anaerobic Blood Culture - Final No growth in 5 days. 02/06/22 17:07 Blood - Blood Aerobic Blood Culture - Final No growth in 5 days. 02/06/22 17:07 Blood - Blood Anaerobic Blood Culture - Final No growth in 5 days. Assessment/ Plan: Nephrology No dyspnea No chest pain Feeling better No acute events overnight Vitals, medications, blood work and imaging reviewed in the chart. NAD. NCAT. MMM. Neck supple. Normal respiratory effort. RRR. Abd ND. No C/C/E. No rash. AAO. Normal speech. 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
== END 2022-02-12 21:05 | DRG 557 ==
LOC: ER 15:26 → EDBD 15:26 → MERGE 20:19 → ERHOLD 20:19 → 2ND 02-07 13:43
PROVIDERS: ADMIT Internal Medicine; ATTEND Hospitalist
DX: M62.82 Rhabdomyolysis (principal); G92.8 Other toxic encephalopathy; U07.1 COVID-19; I21.A1 Myocardial infarction type 2; E87.0 Hyperosmolality and hypernatremia; N17.9 Acute kidney failure, unspecified; E86.0 Dehydration; G93.89 Other specified disorders of brain; E87.8 Other disorders of electrolyte and fluid balance, not elsewhere classified; N40.1 Benign prostatic hyperplasia with lower urinary tract symptoms; E78.5 Hyperlipidemia, unspecified; I12.9 Hypertensive chronic kidney disease with stage 1 through stage 4 chronic kidney disease, or unspecified chronic kidney disease; N18.9 Chronic kidney disease, unspecified; M25.511 Pain in right shoulder; M25.551 Pain in right hip; I08.3 Combined rheumatic disorders of mitral, aortic and tricuspid valves; D63.8 Anemia in other chronic diseases classified elsewhere; F03.90 Unspecified dementia, unspecified severity, without behavioral disturbance, psychotic disturbance, mood disturbance, and anxiety; D72.829 Elevated white blood cell count, unspecified; R94.4 Abnormal results of kidney function studies; R31.29 Other microscopic hematuria; R79.89 Other specified abnormal findings of blood chemistry; Z66 Do not resuscitate; Z60.2 Problems related to living alone; W01.10XA Fall on same level from slipping, tripping and stumbling with subsequent striking against unspecified object, initial encounter; Y93.9 Activity, unspecified; Y92.098 Other place in other non-institutional residence as the place of occurrence of the external cause; Z79.84 Long term (current) use of oral hypoglycemic drugs; Z79.01 Long term (current) use of anticoagulants; Z79.899 Other long term (current) drug therapy
CPT/HCPCS: 36415; 51702; 70450; 70544; 70549; 70553; 71045; 71250; 72125; 76705; 80048; 80053; 80061; 80076; 81003; 81015; 82550; 82553; 83605; 83735; 83880; 84145; 84439; 84443; 84484; 85025; 85610; 87040; 93005; 93306; 96365; 96366; 96367; 96368; 97116; 99285; A9577; J0692; J1644; J1650; J3411; J7030; J7040; U0003